=== PATIENT | male | born 1945 | race Caucasian/White ===

== ENCOUNTER → 2016-10-06 | Outpatient (CLI) | payer MEDICARE, OTHER ==
--- OUTSIDE RECORDS SUMMARY | 2016-10-06 12:20 | XMS REPORT | Continuity of Care Document ---
Author Author [facility] Organization [facility] Address Unknown Phone Unavailable Care Team Providers Care Dry Yard Worker Name Role Phone PCP Unavailable Source Comments Some departments are not documenting in the electronic medical record. If you do not see the information that you expected, contact Release of Information in the Health Information Management department at [phone] for further assistance in locating additional records.[facility] Active Allergies and Adverse Reactions No Known Allergies Current Medications Prescription Sig. Disp. Refills Start End Date Status Date ALLOPURINOL PO Take by mouth. Active aspirin EC 81 mg tablet Take 81 mg by mouth Active daily. MULTIVITAMINS WITH Take by mouth. Active FLUORIDE (MULTI-VITAMIN PO) Active Problems Problem Noted Date Prostate cancer (HCC) 06/26/2014 Overview: Pre-PNBx PSA was 3.9 at the time, 36 gram prostate 03/06/2004 PNBx - [place] 3+3=6 in 4 left cores Negative Bone and CT scan 05/21/2004 ([facility]) - RRP, BPNLD, L nerve sparing Pathology: G 3+4=7, PNI, positive R-sided margin Negative PSA post-op until June 2012, rise to 2.0 in 03/201405/11/14 Bone scan: negative 05/11/14 CT Abd/Pel: enlarged pelvic nodes with the largest measuring 4cm Erectile dysfunction 06/26/2014 Overview: S/p prostatectomy Social History Tobacco Use Types Packs/Day Years Used Date Former Smoker Smokeless Tobacco: Never Used Alcohol Use Drinks/Week oz/Week Comments No Last Filed Vital Signs Vital Sign Reading Time Taken Blood Pressure 130/70 06/26/2014 9:37 AM COMMUNITY MANAGER Pulse 78 06/26/2014 9:37 AM COMMUNITY MANAGER Temperature - - Respiratory Rate - - Height 1.753 m (5' 9") 06/26/2014 9:37 AM COMMUNITY MANAGER Weight 122.653 kg (270 lb 6.4 06/26/2014 9:37 AM COMMUNITY MANAGER oz) Body Mass Index 39.91 06/26/2014 9:37 AM COMMUNITY MANAGER Oxygen Saturation - - Plan of Care Health Maintenance Due Date Last Done Comments Physical (Comprehensive) 1952 Exam Pertussis Vaccine 1956 Tetanus Vaccine 1962 Colorectal Cancer 11/17/1995 Screening Shingles Vaccine 2005 Prevnar/Pneumovax (#1) 2010 Influenza Vaccine 04/23/2016 Results from Last 3 Months Not on file
--- NOTE | 2016-10-06 16:58 | Diagnostic Imaging Report ---
EXAMINATION: PET-CT TECHNIQUE: Serum glucose level at the time of the study is: 114 mg/dL. 14.1 mCi of FDG was administered intravenously followed by obtaining PET images with corresponding noncontrast CT scan images. The CT scan was performed for anatomic correlation and attenuation correction and was not performed according to the diagnostic protocol of the areas covered. The scan was performed from the head to mid thighs. INDICATION: Non-Hodgkin's lymphoma. FINDINGS: There are innumerable enlarged and nonenlarged but prominent lymph nodes in the cervical chain bilaterally that demonstrate avid FDG uptake. This involves intraparotid lymph nodes, level II, III, IV, and V lymph nodes. The largest lymph node on the left side level II is 3.7 x 2.4 cm. There is also hypermetabolism involving the left peritonsillar area with a 1.5 cm nodule in the left paravertebral space which may relate to involved lymph nodes as well. SUV values range from 4 to 10 in the involved lymph nodes. A large left supraclavicular lesion measuring 3 cm is also noted in addition to multiple small supraclavicular lymph nodes on both sides. There are hypermetabolic mildly enlarged lymph nodes in the left axilla and minimally prominent hypermetabolic likely involved right axillary lymph nodes, level II and level III, seen. There is a large left pleural effusion. A large hypermetabolic anterior mediastinal mass is seen measuring 10.9 x 6.4 cm in maximum axial dimension and is associated with a maximum SUV of 13. Other hypermetabolic mediastinal lymph nodes in the infracarinal region and subaortic, right paratracheal nodes are noted in addition to bilateral hilar hypermetabolic nodes. There is also a hypermetabolic mass in a pleural-based location in the medial inferior aspect of the left hemithorax measuring 6 x 1.5 cm also demonstrating avid FDG uptake. There is a left pericardial fat pad lymph node measuring 2 cm just above the diaphragm with associated mild hypermetabolism. The spleen is associated with diffuse prominent hypermetabolism with an SUV of 7 in average and is moderate to severely enlarged with maximum axial dimensions of 19 x 10.4 cm obtained. There are mildly enlarged hypermetabolic para-aortic lymph nodes also seen on both sides as well as widely enlarged will hepatis and other upper abdominal lymph nodes along the celiac axis. There are also mildly enlarged left external iliac and left common iliac and left inguinal hypermetabolic lymph nodes seen. IMPRESSION: 1. Extensive hypermetabolic lymphadenopathy in the neck, mediastinum, abhilash, axillae, retroperitoneal, left iliac, and left inguinal lymph node stations involved. 2. There is [id number] splenomegaly with hypermetabolism suggestive of lymphoma involvement, and there is a pleural-based mass in the medial inferior aspect of the left chest and a nodule/mildly enlarged lymph node in the left pericardial fat pad, all compatible with lymphoma involvement. Dictated by: Dictated on workstation # [id number]
== END ==
LOC: RAD 12:17
PROVIDERS: ATTEND Internal Medicine Hematology & Oncology
DX: C85.90 Non-Hodgkin lymphoma, unspecified, unspecified site (principal); R22.1 Localized swelling, mass and lump, neck

== ENCOUNTER → 2016-10-08 | Outpatient (CLI) | payer MEDICARE, OTHER ==
--- OUTSIDE RECORDS SUMMARY | 2016-10-08 11:44 | XMS REPORT | Continuity of Care Document ---
Author Author [facility] Organization [facility] Address Unknown Phone Unavailable Care Team Providers Care Roll Weigher Name Role Phone PCP Unavailable Source Comments Some departments are not documenting in the electronic medical record. If you do not see the information that you expected, contact Release of Information in the Health Information Management department at [phone] for further assistance in locating additional records.[facility] Active Allergies and Adverse Reactions No [...] time, 36 gram prostate 03/06/2004 PNBx - [place] 3+3=6 in 4 left cores Negative Bone and CT scan 05/21/2004 ([facility]) - RRP, BPNLD, L nerve sparing Pathology: [...] Taken Blood Pressure 130/70 06/26/2014 9:37 AM ADJUTANT GENERAL Pulse 78 06/26/2014 9:37 AM ADJUTANT GENERAL Temperature - - Respiratory Rate - - Height 1.753 m (5' 9") 06/26/2014 9:37 AM ADJUTANT GENERAL Weight 122.653 kg (270 lb 6.4 06/26/2014 9:37 AM ADJUTANT GENERAL oz) Body Mass Index 39.91 06/26/2014 9:37 AM ADJUTANT GENERAL Oxygen Saturation - - Plan of Care Health Maintenance Due Date Last Done Comments Physical (Comprehensive) 1952 Exam Pertussis Vaccine 1956 Tetanus Vaccine 1962 Colorectal Cancer 11/17/1995 Screening Shingles Vaccine 2005 Prevnar/Pneumovax (#1) 2010 Influenza Vaccine 04/23/2016 Results from Last 3 Months Not on file
--- NOTE | 2016-10-09 10:59 | ECHOCARDIOGRAPHY REPORT ---
PROCEDURE PHYSICIAN: ESSENCE REAVES DATE OF PROCEDURE: 10/08/2016 TWO DIMENSIONAL ECHOCARDIOGRAM REPORT PRIMARY PHYSICIAN: Dr. Smith OTHER PHYSICIAN: REFERRING PHYSICIAN: ORDERING PHYSICIAN: Dr. Voss INDICATION FOR THE PROCEDURE: Lymphoma, preoperative cardiovascular examination MEASUREMENTS DERIVED VALUES LV DIAMETER (LAX) NORMALS NORMALS Diastolic 5.2 (3.6-5.2) Eject. Fract. (60%+/-6%) Systolic (2.3-3.9) Diastolic Vol. % Shortening (0.22-0.42) Systolic Vol. Aortic Root 2.9 IVS THICKNESS Diastolic 1.5 (0.6-1.1) LVPW THICKNESS Diastolic 1.4 (0.6-1.1) LA DIAMETER Systolic 3.6 (2.1-3.7) DESCRIPTION: The aortic, mitral and tricuspid valve leaflets show good leaflet excursion. There is mild aortic valve sclerosis. Aortic valve leaflet structure is not very well visualized. Doppler imaging shows trivial tricuspid regurgitation. Pulmonary artery systolic pressure is 25 to 30 mmHg. There is no Doppler evidence of significant valvular stenosis. Mitral inflow is consistent with grade 1 diastolic dysfunction of the left ventricle. There is no evidence of significant intracardiac shunt on this transthoracic echocardiographic study. Inferior vena cava is of normal size and exhibits normal inspiratory collapse. CONCLUSION: 1. Normal global left ventricular systolic function with an ejection fraction of approximately 60 to 65%. 2. Mild to moderate concentric left ventricular hypertrophy. 3. Mild diastolic dysfunction of the left ventricle. 4. Trivial tricuspid regurgitation. 5. Pulmonary artery systolic pressure is estimated to be 25 to 30 mmHg. 6. No evidence of significant valvular stenosis. Job ID: [id number] Dictated Date: 10/08/2016 20:11:32 Hardware Assembler Date: 10/09/2016 10:51:57 / [email or web address]
== END ==
LOC: CARD 11:41
PROVIDERS: ATTEND Internal Medicine Hematology & Oncology
DX: Z01.810 Encounter for preprocedural cardiovascular examination (principal); C85.90 Non-Hodgkin lymphoma, unspecified, unspecified site
CPT/HCPCS: 93306

== ENCOUNTER → 2016-12-28 | Outpatient (CLI) | payer MEDICARE, OTHER ==
[~2016-12-28] MED LIST: BARIUM SUSPENSION 2.1% (REDI-CAT 2) 450 ML PO ONE; CATHETER FLUSH 10 ML SYR IV PRN; IOHEXOL 350 MG/ML 150 ML (OMNIPAQUE 350) VIAL IV ONE; NS 100 ML (IVPB) BAG IV ONE
--- NOTE | 2016-12-28 16:49 | Diagnostic Imaging Report ---
CT NECK/CHEST/ABDOMEN/PELVIS W TECHNIQUE: Post contrast axial CT imaging of the chest, abdomen, and pelvis was performed. This was followed by post contrast axial imaging of the neck. Coronal reformats were created of both the body and the neck and submitted for interpretation. INDICATION: Non-Hodgkin's lymphoma. COMPARISON: CT chest, abdomen, and pelvis from 10/05/2016. CT NECK: FINDINGS: No enlarged cervical lymph nodes by size criteria. There are a few conspicuous bilateral cervical lymph nodes which are all subcentimeter in size. The largest is a left-sided level IIA lymph node measuring up to 1.0 cm in long axis. Airway is widely patent. No evidence of mucosal-based mass lesion in the pharynx or larynx. Stable partially exophytic and partially calcified hypodense nodule in the left thyroid measuring 1.0 x 1.0 cm. Salivary glands are symmetric. Bilateral carotid and vertebral arteries are patent. No focal suspicious osseous lesion in the cervical spine. Mild multilevel cervical spondylosis. IMPRESSION: 1. No cervical lymphadenopathy to suggest lymphoma within the neck. There are multiple predominantly subcentimeter bilateral cervical lymph nodes which are likely reactive in nature. 2. Stable partially calcified hypodense nodule in the inferior thyroid measuring up to 1 cm. This could be further evaluated with thyroid ultrasound, if not previously performed. CT CHEST: FINDINGS: No axillary lymphadenopathy. The mediastinal lymphadenopathy has undergone marked treatment response since outside exam of 09/25/2016. The previously noted large conglomeration of anterior mediastinal lymph nodes are now band like in configuration measuring 6.5 x 1.4 cm (previously measuring 12.1 x 6.9 cm). Additionally, the paratracheal lymph nodes have decreased in size with the lower right paratracheal lymph node now measuring 1.5 x 0.7 cm (previously 3.4 x 2.8 cm). An additional conglomeration of upper right paratracheal lymph nodes are no longer measurable as they are all less than 0.5 cm in size. Marked decrease in size of right hilar lymphadenopathy, with minimal residual lymphoid tissue measuring 1.0 x 0.7 cm (previously 4.0 x 4.2 cm). No left hilar lymphadenopathy. No juxtaphrenic lymphadenopathy. Previously noted left anterior juxtaphrenic lymph node now measures 1.1 x 0.4 cm (previously 2.3 x 1.3 cm). The heart is normal in size. No pericardial effusion. Normal-caliber thoracic aorta. Decrease in size of left pleural effusion, which is now small in volume. No pneumothorax or pleural nodularity. Unchanged 5 mm nodule in the posterior right upper lobe. Clustered micronodules within the periphery of the posterior right upper lobe are also similar. No new pulmonary nodule or mass. Improved aeration in the left lower lobe due to decrease in size of the left-sided pleural effusion. No suspicious osseous lesions in the thorax. IMPRESSION: 1. Marked treatment response in the chest with near-complete resolution of mediastinal and hilar lymphadenopathy. 2. Decrease in size but persistence of small left pleural effusion. 3. A few right upper lobe pulmonary nodules are unchanged and could be infectious or inflammatory in etiology. However, attention on followup surveillance imaging is advised as secondary pulmonary involvement could have this appearance. CT ABDOMEN AND PELVIS: FINDINGS: No free intraperitoneal air or fluid. Liver is normal in size. The spleen is no longer enlarged with maximal AP dimension of 11.6 cm (previously 19.6 cm). Gallbladder and adrenals are normal. Stable fatty infiltration of the pancreas without focal mass lesion. No bowel obstruction. Stable exophytic cyst arising from the lower pole of the left kidney measuring up to 2.0 cm. Stable fusiform ectasia of the infrarenal abdominal aorta measuring up to 2.4 cm. Sigmoid colon diverticulosis without diverticulitis. No inflammatory changes in the terminal ileum to suggest typhlitis. Prostatectomy. Marked decrease in size of previously noted enlarged retroperitoneal lymph nodes throughout the abdomen. Additional celiac axis lymph nodes have decreased in size. The majority of the lymph nodes are no longer measurable. Previously noted right retrocaval conglomeration of lymph nodes now measures 1.5 x 0.5 cm (previously 3.8 x 2.9 cm). The residual lymph nodes are all subcentimeter in size and not pathologically enlarged. IMPRESSION: 1. Marked treatment response in the abdomen with resolution of retroperitoneal and mesenteric root lymphadenopathy. Additionally, there has been resolution of splenomegaly. Dictated by: Dictated on workstation # [id number]
== END ==
LOC: RAD 12:53
PROVIDERS: ATTEND Nurse Practitioner Adult Health
DX: C82.18 Follicular lymphoma grade II, lymph nodes of multiple sites (principal)
CPT/HCPCS: 70491; 71260; 74176

== ENCOUNTER → 2017-01-04 | Outpatient (RCR) | payer MEDICARE, OTHER ==
--- OUTSIDE RECORDS SUMMARY | 2016-10-06 14:37 | XMS REPORT | Continuity of Care Document ---
Author Author [facility] Organization [facility] Address Unknown Phone Unavailable Care Team Providers Care Telescope Maintenance Name Role Phone PCP Unavailable Source Comments Some departments are not documenting in the electronic medical record. If you do not see the information that you expected, contact Release of Information in the Health Information Management department at [phone] for further assistance in locating additional records.[facility] Active Allergies and Adverse Reactions No Known [...] time, 36 gram prostate 03/06/2004 PNBx - [place] 3+3=6 in 4 left cores Negative Bone and CT scan 05/21/2004 ([facility]) - RRP, BPNLD, L nerve sparing Pathology: [...] Taken Blood Pressure 130/70 06/26/2014 9:37 AM SPEECH LANGUAGE PATHOLOGIST ASSISTANT Pulse 78 06/26/2014 9:37 AM SPEECH LANGUAGE PATHOLOGIST ASSISTANT Temperature - - Respiratory Rate - - Height 1.753 m (5' 9") 06/26/2014 9:37 AM SPEECH LANGUAGE PATHOLOGIST ASSISTANT Weight 122.653 kg (270 lb 6.4 06/26/2014 9:37 AM SPEECH LANGUAGE PATHOLOGIST ASSISTANT oz) Body Mass Index 39.91 06/26/2014 9:37 AM SPEECH LANGUAGE PATHOLOGIST ASSISTANT Oxygen Saturation - - Plan of Care Health Maintenance Due Date Last Done Comments Physical (Comprehensive) 1952 Exam Pertussis Vaccine 1956 Tetanus Vaccine 1962 Colorectal Cancer 11/17/1995 Screening Shingles Vaccine 2005 Prevnar/Pneumovax (#1) 2010 Influenza Vaccine 04/23/2016 Results from Last 3 Months Not on file
[2016-10-06 15:59] LABS: BASOPHILS % (AUTO) 1 % (0-10); EOSINOPHILS # (AUTO) 0.5 10^3/uL (0.0-0.3); EOSINOPHILS % (AUTO) 7 % (0-10); LYMPHOCYTES # (AUTO) 1.6 X 10^3 (1.0-4.0); LYMPHOCYTES % (AUTO) 25 % (12-44); MEAN CORPUSCULAR HEMOGLOBIN 27 PG (25-34); MEAN CORPUSCULAR HGB CONC 33 G/DL (32-36); MEAN CORPUSCULAR VOLUME 84 FL (80-99); MEAN PLATELET VOLUME 8.9 FL (7.4-10.4); MONOCYTES # (AUTO) 0.8 X 10^3 (0.0-1.0); MONOCYTES % (AUTO) 13 % (0-12); NEUTROPHILS # (AUTO) 3.5 X 10^3 (1.8-7.8); NEUTROPHILS % (AUTO) 55 % (42-75); PLATELET COUNT 255 10^3/uL (130-400); RED BLOOD COUNT 4.59 10^6/uL (4.35-5.85); WHITE BLOOD COUNT 6.4 10^3/uL (4.3-11.0)
[2016-10-06 16:33] LABS: ALANINE AMINOTRANSFERASE 20 U/L (0-55); ALBUMIN 3.9 G/DL (3.2-4.5); ANION GAP 13 MMOL/L (5-14); ASPARTATE AMINO TRANSFERASE 42 U/L (5-34); BILIRUBIN,TOTAL 0.4 MG/DL (0.1-1.0); BLOOD UREA NITROGEN 21 MG/DL (7-18); BUN/CREATININE RATIO 19; CALCIUM 9.3 MG/DL (8.5-10.1); CARBON DIOXIDE 19 MMOL/L (21-32); CHLORIDE 106 MMOL/L (98-107); CREATININE SERUM 1.08 MG/DL (0.60-1.30); GFR ESTIMATED > 60; GLUCOSE 136 MG/DL (70-105); LACTATE DEHYDROGENASE 229 U/L (125-220); POTASSIUM 4.1 MMOL/L (3.6-5.0); SODIUM 138 MMOL/L (135-145); TOTAL PROTEIN 7.5 G/DL (6.4-8.2); URIC ACID 10.2 MG/DL (2.6-7.2)
[2016-10-13 09:42] LABS: ALANINE AMINOTRANSFERASE 17 U/L (0-55); ALBUMIN 3.6 G/DL (3.2-4.5); ANION GAP 11 MMOL/L (5-14); ASPARTATE AMINO TRANSFERASE 35 U/L (5-34); BILIRUBIN,TOTAL 0.3 MG/DL (0.1-1.0); BLOOD UREA NITROGEN 14 MG/DL (7-18); BUN/CREATININE RATIO 13; CALCIUM 9.1 MG/DL (8.5-10.1); CARBON DIOXIDE 23 MMOL/L (21-32); CHLORIDE 106 MMOL/L (98-107); CREATININE SERUM 1.09 MG/DL (0.60-1.30); GFR ESTIMATED > 60; GLUCOSE 154 MG/DL (70-105); MAGNESIUM 1.9 MG/DL (1.8-2.4); SODIUM 140 MMOL/L (135-145); TOTAL PROTEIN 7.2 G/DL (6.4-8.2); URIC ACID 8.3 MG/DL (2.6-7.2)
[2016-10-14 13:29] LABS: ANION GAP 10 MMOL/L (5-14); BLOOD UREA NITROGEN 16 MG/DL (7-18); BUN/CREATININE RATIO 17; CALCIUM 9.4 MG/DL (8.5-10.1); CARBON DIOXIDE 23 MMOL/L (21-32); CHLORIDE 107 MMOL/L (98-107); CREATININE SERUM 0.92 MG/DL (0.60-1.30); GFR ESTIMATED > 60; GLUCOSE 87 MG/DL (70-105); POTASSIUM 4.2 MMOL/L (3.6-5.0); SODIUM 140 MMOL/L (135-145); URIC ACID 7.6 MG/DL (2.6-7.2)
[2016-11-09 13:14] LABS: BASOPHILS % (AUTO) 1 % (0-10); EOSINOPHILS # (AUTO) 0.4 10^3/uL (0.0-0.3); EOSINOPHILS % (AUTO) 7 % (0-10); LYMPHOCYTES # (AUTO) 1.4 X 10^3 (1.0-4.0); LYMPHOCYTES % (AUTO) 21 % (12-44); MEAN CORPUSCULAR HEMOGLOBIN 28 PG (25-34); MEAN CORPUSCULAR HGB CONC 33 G/DL (32-36); MEAN CORPUSCULAR VOLUME 83 FL (80-99); MEAN PLATELET VOLUME 8.8 FL (7.4-10.4); MONOCYTES % (AUTO) 15 % (0-12); NEUTROPHILS # (AUTO) 3.8 X 10^3 (1.8-7.8); NEUTROPHILS % (AUTO) 57 % (42-75); PLATELET COUNT 281 10^3/uL (130-400); RED BLOOD COUNT 4.56 10^6/uL (4.35-5.85); RED CELL DISTRIBUTION WIDTH 16.8 % (10.0-14.5); WHITE BLOOD COUNT 6.7 10^3/uL (4.3-11.0)
[2016-11-09 13:44] LABS: ALANINE AMINOTRANSFERASE 25 U/L (0-55); ANION GAP 10 MMOL/L (5-14); ASPARTATE AMINO TRANSFERASE 27 U/L (5-34); BILIRUBIN,TOTAL 0.4 MG/DL (0.1-1.0); BLOOD UREA NITROGEN 14 MG/DL (7-18); BUN/CREATININE RATIO 15; CALCIUM 9.6 MG/DL (8.5-10.1); CARBON DIOXIDE 22 MMOL/L (21-32); CHLORIDE 109 MMOL/L (98-107); CREATININE SERUM 0.91 MG/DL (0.60-1.30); GFR ESTIMATED > 60; GLUCOSE 82 MG/DL (70-105); LACTATE DEHYDROGENASE 165 U/L (125-220); POTASSIUM 4.1 MMOL/L (3.6-5.0); SODIUM 141 MMOL/L (135-145); TOTAL PROTEIN 7.5 G/DL (6.4-8.2); URIC ACID 5.3 MG/DL (2.6-7.2)
[2016-12-07 09:35] LABS: BASOPHILS % (AUTO) 1 % (0-10); EOSINOPHILS # (AUTO) 0.2 10^3/uL (0.0-0.3); EOSINOPHILS % (AUTO) 4 % (0-10); LYMPHOCYTES # (AUTO) 1.1 X 10^3 (1.0-4.0); LYMPHOCYTES % (AUTO) 22 % (12-44); MEAN CORPUSCULAR HEMOGLOBIN 28 PG (25-34); MEAN CORPUSCULAR HGB CONC 34 G/DL (32-36); MEAN CORPUSCULAR VOLUME 83 FL (80-99); MEAN PLATELET VOLUME 8.8 FL (7.4-10.4); MONOCYTES # (AUTO) 0.6 X 10^3 (0.0-1.0); MONOCYTES % (AUTO) 11 % (0-12); NEUTROPHILS # (AUTO) 3.1 X 10^3 (1.8-7.8); NEUTROPHILS % (AUTO) 62 % (42-75); PLATELET COUNT 288 10^3/uL (130-400); RED BLOOD COUNT 4.64 10^6/uL (4.35-5.85); RED CELL DISTRIBUTION WIDTH 16.8 % (10.0-14.5)
[2016-12-07 10:06] LABS: ALANINE AMINOTRANSFERASE 21 U/L (0-55); ALBUMIN 4.1 G/DL (3.2-4.5); ANION GAP 10 MMOL/L (5-14); ASPARTATE AMINO TRANSFERASE 24 U/L (5-34); BILIRUBIN,TOTAL 0.4 MG/DL (0.1-1.0); BLOOD UREA NITROGEN 18 MG/DL (7-18); BUN/CREATININE RATIO 17; CALCIUM 9.3 MG/DL (8.5-10.1); CARBON DIOXIDE 21 MMOL/L (21-32); CHLORIDE 111 MMOL/L (98-107); CREATININE SERUM 1.04 MG/DL (0.60-1.30); GFR ESTIMATED > 60; GLUCOSE 147 MG/DL (70-105); LACTATE DEHYDROGENASE 263 U/L (125-220); POTASSIUM 4.1 MMOL/L (3.6-5.0); SODIUM 142 MMOL/L (135-145); TOTAL PROTEIN 7.2 G/DL (6.4-8.2); URIC ACID 7.9 MG/DL (2.6-7.2)
[~2017-01-04] VITALS: Ht 171.4 cm; Wt 108.9 kg
[~2017-01-04] MED LIST changes: +ACETAMINOPHEN 325 MG TAB (TYLENOL) CANCER CTR PO PRN; -BARIUM SUSPENSION 2.1% (REDI-CAT 2) 450 ML PO ONE; +BENDAMUSTINE HCL 180 MG in NS (IVPB) CANCER CENTER 50 ML IV SCH; -CATHETER FLUSH 10 ML SYR IV PRN; -IOHEXOL 350 MG/ML 150 ML (OMNIPAQUE 350) VIAL IV ONE; +MEPERIDINE (DEMEROL) INJ 50 MG/ML CANCER CTR IV PRN; -NS 100 ML (IVPB) BAG IV ONE; +NS IV 1000 ML (CANCER CTR) IV SCH; +NS IV 500 ML (CANCER CENTER) 500 ML ONE; +ONDANSETRON 16 MG, DEXAMETHASONE 10 MG/NS 50 ML IVPB IV SCH; +diphenhydrAMINE 25 MG TAB (BENADRYL) CANCER CENTER PO ONE; +diphenhydrAMINE 50 MG/ML INJ (CANCER CENTER) IV PRN; +riTUXimab 500 MG, riTUXimab FOR IV INJ CONC 300 MG in NS (IVPB) CANCER CENTER 186 ML IV SCH
[2017-01-04 11:08] LABS: BASOPHILS % (AUTO) 1 % (0-10); EOSINOPHILS # (AUTO) 0.3 10^3/uL (0.0-0.3); EOSINOPHILS % (AUTO) 5 % (0-10); LYMPHOCYTES # (AUTO) 0.7 X 10^3 (1.0-4.0); LYMPHOCYTES % (AUTO) 13 % (12-44); MEAN CORPUSCULAR HEMOGLOBIN 29 PG (25-34); MEAN CORPUSCULAR HGB CONC 35 G/DL (32-36); MEAN CORPUSCULAR VOLUME 83 FL (80-99); MEAN PLATELET VOLUME 8.8 FL (7.4-10.4); MONOCYTES # (AUTO) 0.8 X 10^3 (0.0-1.0); MONOCYTES % (AUTO) 15 % (0-12); NEUTROPHILS # (AUTO) 3.5 X 10^3 (1.8-7.8); NEUTROPHILS % (AUTO) 66 % (42-75); PLATELET COUNT 279 10^3/uL (130-400); RED BLOOD COUNT 4.58 10^6/uL (4.35-5.85); RED CELL DISTRIBUTION WIDTH 16.2 % (10.0-14.5); WHITE BLOOD COUNT 5.3 10^3/uL (4.3-11.0)
[2017-01-04 11:31] LABS: ALANINE AMINOTRANSFERASE 22 U/L (0-55); ALBUMIN 4.2 G/DL (3.2-4.5); ANION GAP 7 MMOL/L (5-14); ASPARTATE AMINO TRANSFERASE 26 U/L (5-34); BILIRUBIN,TOTAL 0.3 MG/DL (0.1-1.0); BLOOD UREA NITROGEN 18 MG/DL (7-18); BUN/CREATININE RATIO 17; CALCIUM 9.6 MG/DL (8.5-10.1); CARBON DIOXIDE 26 MMOL/L (21-32); CHLORIDE 109 MMOL/L (98-107); CREATININE SERUM 1.09 MG/DL (0.60-1.30); GFR ESTIMATED > 60; GLUCOSE 101 MG/DL (70-105); LACTATE DEHYDROGENASE 253 U/L (125-220); MAGNESIUM 2.1 MG/DL (1.8-2.4); POTASSIUM 4.1 MMOL/L (3.6-5.0); SODIUM 142 MMOL/L (135-145); TOTAL PROTEIN 7.3 G/DL (6.4-8.2); URIC ACID 8.5 MG/DL (2.6-7.2)
== END | disposition home or self-care (01) ==
LOC: ONC 10-06 14:32
PROVIDERS: ATTEND Internal Medicine Hematology & Oncology
DX: Z51.11 Encounter for antineoplastic chemotherapy (principal); C82.18 Follicular lymphoma grade II, lymph nodes of multiple sites; M10.9 Gout, unspecified; Z85.46 Personal history of malignant neoplasm of prostate; Z87.891 Personal history of nicotine dependence
CPT/HCPCS: 36415; 36591; 80048; 80053; 80074; 82232; 83615; 83735; 84550; 85025; 96375; 96409; 96411; 96413; 96415; 96417; 99213; 99214

== ENCOUNTER → 2017-03-31 | Outpatient (CLI) | payer MEDICARE, OTHER ==
[~2017-03-31] MED LIST changes: -ACETAMINOPHEN 325 MG TAB (TYLENOL) CANCER CTR PO PRN; -BENDAMUSTINE HCL 180 MG in NS (IVPB) CANCER CENTER 50 ML IV SCH; +CATHETER FLUSH 10 ML SYR IV PRN; +IOHEXOL 350 MG/ML 150 ML (OMNIPAQUE 350) VIAL IV ONE; -MEPERIDINE (DEMEROL) INJ 50 MG/ML CANCER CTR IV PRN; -NS IV 1000 ML (CANCER CTR) IV SCH; -NS IV 500 ML (CANCER CENTER) 500 ML ONE; -ONDANSETRON 16 MG, DEXAMETHASONE 10 MG/NS 50 ML IVPB IV SCH; -diphenhydrAMINE 25 MG TAB (BENADRYL) CANCER CENTER PO ONE; -diphenhydrAMINE 50 MG/ML INJ (CANCER CENTER) IV PRN; -riTUXimab 500 MG, riTUXimab FOR IV INJ CONC 300 MG in NS (IVPB) CANCER CENTER 186 ML IV SCH
--- NOTE | 2017-03-31 15:55 | Diagnostic Imaging Report ---
EXAMINATION: CT of the neck, chest, abdomen, and pelvis with and without contrast. INDICATION: Non-Hodgkin's lymphoma. TECHNIQUE: Contiguous axial sections were taken through the abdomen and pelvis following administration of oral contrast. Subsequently additional images of the neck, chest, abdomen, and pelvis were obtained after intravenous contrast was administered. FINDINGS: The previous CT neck, chest, abdomen, and pelvis exam of 12/28/2016 noted a left-sided level IIA lymph node measuring approximately 1.1 cm in maximum dimension. That node has decreased in size and now measures 0.8 cm. No other adenopathy is noted, and there is no sign of a mass. The parotid and submandibular glands appear symmetrical and stable when compared to the prior study. The partially calcified 1.1 x 1.0 cm nodule in the inferior pole of the left lobe of the thyroid seen previously is again evident and does not appear to have changed significantly in size. The images through the thorax noted a band-like area of increased density in the anterior mediastinum measuring 1.7 x 6.4 cm. That finding is again evident on this study and now measures 1.6 x 6.5 cm. The subcentimeter nodes in the mediastinum seen on the prior study are again evident and do not appear to have changed adversely. As on the previous study, there is a left pleural effusion. The effusion has increased somewhat in size since the prior exam and now measures approximately 3.4 cm in maximum depth as opposed to 2.8 cm on the prior study. There is no sign of a pleural effusion on the left. The lungs are generally clear. The cluster of micronodules in the periphery of the right upper lobe seen on the prior study are not well visualized on this exam. The aorta is stable in size. There is no defect within the pulmonary arteries to indicate a pulmonary embolus. The heart size remains within normal limits. Coronary artery calcifications are again noted. The images through the abdomen and pelvis again show a few small retroperitoneal nodes. The 0.5 x 1.5 cm node in the retrocaval region seen on the prior study now measures 0.6 x 1.3 cm. There are a few other subcentimeter nodes present in the retroperitoneum. There is no pelvic or iliac chain adenopathy noted, and there is no sign of adenopathy in the inguinal regions. The spleen is similar in size to the prior exam measuring approximately 12 cm in maximum AP diameter. The liver does not appear to be enlarged. The 1.4 cm area of diminished density in the medial aspect of the right lobe of the liver near the falciform ligament seen previously is again evident and does not appear to have changed significantly. This finding is not as conspicuous on the delayed series, and I suspect that this probably represents a small hemangioma. The pancreas, the gallbladder, the kidneys, the aorta, and the inferior vena cava are unremarkable for an acute abnormality. The adrenal glands are generally unremarkable. As seen on the prior study, there are numerous diverticula involving the sigmoid and descending colon. There is no sign of acute diverticulitis. There is no evidence for appendicitis either. The urinary bladder is grossly unremarkable. The prostate gland is surgically absent. The bone windows show no evidence for a fracture or for a destructive lesion. IMPRESSION: 1. The appearance of the neck has improved as the small level II node on the left seen previously has diminished in size. No new adenopathy in the neck has developed. The low-density nodule in the left lobe of the thyroid also seems stable. 2. There is no new adenopathy involving the thorax, abdomen, or pelvis either. 3. The pleural effusion on the left seen previously has increased in size slightly. There is no acute cardiopulmonary abnormality identified. There is no acute abnormality of the abdomen or pelvis noted either. Dictated by: Dictated on workstation # [id number]
== END ==
LOC: RAD 10:39
PROVIDERS: ATTEND Internal Medicine Hematology & Oncology
DX: E04.1 Nontoxic single thyroid nodule (principal); J90 Pleural effusion, not elsewhere classified; C82.18 Follicular lymphoma grade II, lymph nodes of multiple sites
CPT/HCPCS: 70491; 71260; 74178

== ENCOUNTER → 2017-04-05 | Outpatient (RCR) | payer MEDICARE, OTHER ==
[2017-02-08 13:14] LABS: BASOPHILS % (AUTO) 0 % (0-10); EOSINOPHILS # (AUTO) 0.2 10^3/uL (0.0-0.3); EOSINOPHILS % (AUTO) 3 % (0-10); LYMPHOCYTES % (AUTO) 19 % (12-44); MEAN CORPUSCULAR HEMOGLOBIN 29 PG (25-34); MEAN CORPUSCULAR HGB CONC 35 G/DL (32-36); MEAN CORPUSCULAR VOLUME 85 FL (80-99); MEAN PLATELET VOLUME 8.9 FL (7.4-10.4); MONOCYTES # (AUTO) 0.7 X 10^3 (0.0-1.0); MONOCYTES % (AUTO) 14 % (0-12); NEUTROPHILS # (AUTO) 3.3 X 10^3 (1.8-7.8); NEUTROPHILS % (AUTO) 63 % (42-75); PLATELET COUNT 277 10^3/uL (130-400); RED BLOOD COUNT 4.25 10^6/uL (4.35-5.85); RED CELL DISTRIBUTION WIDTH 14.7 % (10.0-14.5); WHITE BLOOD COUNT 5.1 10^3/uL (4.3-11.0)
[2017-02-08 13:32] LABS: ALANINE AMINOTRANSFERASE 21 U/L (0-55); ALBUMIN 4.2 GM/DL (3.2-4.5); ANION GAP 11 MMOL/L (5-14); ASPARTATE AMINO TRANSFERASE 25 U/L (5-34); BILIRUBIN,TOTAL 0.6 MG/DL (0.1-1.0); BLOOD UREA NITROGEN 15 MG/DL (7-18); BUN/CREATININE RATIO 14 (0-20); CALCIUM 9.5 MG/DL (8.5-10.1); CARBON DIOXIDE 23 MMOL/L (21-32); CHLORIDE 108 MMOL/L (98-107); CREATININE SERUM 1.07 MG/DL (0.60-1.30); GFR ESTIMATED > 60; GLUCOSE 119 MG/DL (70-105); HEMOLYSIS 14 (-100-29); ICTERUS 0.5 (-100-1.9); LACTATE DEHYDROGENASE 293 U/L (125-220); LIPEMIA 31 (-100-49); POTASSIUM 3.9 MMOL/L (3.6-5.0); SODIUM 142 MMOL/L (135-145); TOTAL PROTEIN 7.4 GM/DL (6.4-8.2); URIC ACID 7.8 MG/DL (2.6-7.2)
[2017-03-08 08:58] LABS: BASOPHILS # (AUTO) 0.1 10^3/uL (0.0-0.1); BASOPHILS % (AUTO) 1 % (0-10); EOSINOPHILS # (AUTO) 0.3 10^3/uL (0.0-0.3); EOSINOPHILS % (AUTO) 7 % (0-10); LYMPHOCYTES # (AUTO) 0.9 X 10^3 (1.0-4.0); LYMPHOCYTES % (AUTO) 20 % (12-44); MEAN CORPUSCULAR HEMOGLOBIN 30 PG (25-34); MEAN CORPUSCULAR HGB CONC 35 G/DL (32-36); MEAN CORPUSCULAR VOLUME 85 FL (80-99); MEAN PLATELET VOLUME 8.7 FL (7.4-10.4); MONOCYTES # (AUTO) 0.8 X 10^3 (0.0-1.0); MONOCYTES % (AUTO) 18 % (0-12); NEUTROPHILS # (AUTO) 2.3 X 10^3 (1.8-7.8); NEUTROPHILS % (AUTO) 54 % (42-75); PLATELET COUNT 269 10^3/uL (130-400); RED BLOOD COUNT 4.46 10^6/uL (4.35-5.85); WHITE BLOOD COUNT 4.3 10^3/uL (4.3-11.0)
[2017-03-08 09:24] LABS: ALANINE AMINOTRANSFERASE 24 U/L (0-55); ALBUMIN 4.1 GM/DL (3.2-4.5); ANION GAP 11 MMOL/L (5-14); ASPARTATE AMINO TRANSFERASE 24 U/L (5-34); BILIRUBIN,TOTAL 0.4 MG/DL (0.1-1.0); BLOOD UREA NITROGEN 15 MG/DL (7-18); BUN/CREATININE RATIO 14; CALCIUM 9.3 MG/DL (8.5-10.1); CARBON DIOXIDE 22 MMOL/L (21-32); CHLORIDE 107 MMOL/L (98-107); GFR ESTIMATED > 60; GLUCOSE 166 MG/DL (70-105); LACTATE DEHYDROGENASE 193 U/L (125-220); MAGNESIUM 1.8 MG/DL (1.8-2.4); POTASSIUM 3.8 MMOL/L (3.6-5.0); SODIUM 140 MMOL/L (135-145); TOTAL PROTEIN 7.4 GM/DL (6.4-8.2); URIC ACID 7.1 MG/DL (2.6-7.2)
[~2017-04-05] VITALS: Ht 171.4 cm; Wt 110.7 kg
[~2017-04-05] MED LIST changes: +ACETAMINOPHEN 325 MG TAB (TYLENOL) CANCER CTR PO PRN; +BENDAMUSTINE HCL 180 MG in NS (IVPB) CANCER CENTER 50 ML IV SCH; -CATHETER FLUSH 10 ML SYR IV PRN; -IOHEXOL 350 MG/ML 150 ML (OMNIPAQUE 350) VIAL IV ONE; +MEPERIDINE (DEMEROL) INJ 50 MG/ML CANCER CTR IV PRN; +NS IV 1000 ML (CANCER CTR) IV SCH; +NS IV 500 ML (CANCER CENTER) 500 ML ONE; +ONDANSETRON 16 MG, DEXAMETHASONE 10 MG/NS 50 ML IVPB IV SCH; +diphenhydrAMINE 25 MG TAB (BENADRYL) CANCER CENTER PO ONE; +diphenhydrAMINE 50 MG/ML INJ (CANCER CENTER) IV PRN; +riTUXimab 500 MG, riTUXimab FOR IV INJ CONC 300 MG in NS (IVPB) CANCER CENTER 186 ML IV SCH
[2017-04-05 10:03] LABS: BASOPHILS % (AUTO) 1 % (0-10); EOSINOPHILS # (AUTO) 0.3 10^3/uL (0.0-0.3); EOSINOPHILS % (AUTO) 5 % (0-10); LYMPHOCYTES # (AUTO) 0.9 X 10^3 (1.0-4.0); LYMPHOCYTES % (AUTO) 16 % (12-44); MEAN CORPUSCULAR HEMOGLOBIN 30 PG (25-34); MEAN CORPUSCULAR HGB CONC 35 G/DL (32-36); MEAN CORPUSCULAR VOLUME 86 FL (80-99); MEAN PLATELET VOLUME 8.7 FL (7.4-10.4); MONOCYTES # (AUTO) 0.9 X 10^3 (0.0-1.0); MONOCYTES % (AUTO) 15 % (0-12); NEUTROPHILS # (AUTO) 3.6 X 10^3 (1.8-7.8); NEUTROPHILS % (AUTO) 62 % (42-75); PLATELET COUNT 252 10^3/uL (130-400); RED BLOOD COUNT 4.36 10^6/uL (4.35-5.85); RED CELL DISTRIBUTION WIDTH 15.7 % (10.0-14.5); WHITE BLOOD COUNT 5.7 10^3/uL (4.3-11.0)
[2017-04-05 10:52] LABS: ALANINE AMINOTRANSFERASE 19 U/L (0-55); ALBUMIN 4.1 GM/DL (3.2-4.5); ANION GAP 12 MMOL/L (5-14); ASPARTATE AMINO TRANSFERASE 24 U/L (5-34); BILIRUBIN,TOTAL 0.5 MG/DL (0.1-1.0); BLOOD UREA NITROGEN 14 MG/DL (7-18); BUN/CREATININE RATIO 13; CALCIUM 9.6 MG/DL (8.5-10.1); CARBON DIOXIDE 22 MMOL/L (21-32); CHLORIDE 108 MMOL/L (98-107); CREATININE SERUM 1.05 MG/DL (0.60-1.30); GFR ESTIMATED > 60; GLUCOSE 128 MG/DL (70-105); LACTATE DEHYDROGENASE 204 U/L (125-220); POTASSIUM 3.9 MMOL/L (3.6-5.0); SODIUM 142 MMOL/L (135-145); TOTAL PROTEIN 7.3 GM/DL (6.4-8.2); URIC ACID 7.2 MG/DL (2.6-7.2)
== END | disposition home or self-care (01) ==
LOC: ONC 01-05 12:50
PROVIDERS: ATTEND Internal Medicine Hematology & Oncology
DX: Z51.11 Encounter for antineoplastic chemotherapy (principal); C82.18 Follicular lymphoma grade II, lymph nodes of multiple sites; M10.9 Gout, unspecified; Z85.46 Personal history of malignant neoplasm of prostate; Z87.891 Personal history of nicotine dependence
CPT/HCPCS: 36591; 80053; 83615; 83735; 84550; 85025; 96375; 96409; 96411; 96413

== ENCOUNTER 2017-05-10 08:28 | Outpatient (RCR) | payer MEDICARE, OTHER ==
[~2017-05-10] VITALS: Ht 171.4 cm; Wt 109.3 kg
[~2017-05-10 08:28] MED LIST changes: +NS IV 500 ML (CANCER CENTER) 500 ML IV SCH; -NS IV 500 ML (CANCER CENTER) 500 ML ONE; -diphenhydrAMINE 25 MG TAB (BENADRYL) CANCER CENTER PO ONE
[2017-05-10 08:59] LABS: BASOPHILS % (AUTO) 1 % (0-10); EOSINOPHILS # (AUTO) 0.2 10^3/uL (0.0-0.3); EOSINOPHILS % (AUTO) 4 % (0-10); LYMPHOCYTES % (AUTO) 20 % (12-44); MEAN CORPUSCULAR HEMOGLOBIN 30 PG (25-34); MEAN CORPUSCULAR HGB CONC 35 G/DL (32-36); MEAN CORPUSCULAR VOLUME 86 FL (80-99); MEAN PLATELET VOLUME 9.3 FL (7.4-10.4); MONOCYTES # (AUTO) 0.6 X 10^3 (0.0-1.0); MONOCYTES % (AUTO) 13 % (0-12); NEUTROPHILS # (AUTO) 3.1 X 10^3 (1.8-7.8); NEUTROPHILS % (AUTO) 63 % (42-75); PLATELET COUNT 264 10^3/uL (130-400); RED BLOOD COUNT 4.45 10^6/uL (4.35-5.85); RED CELL DISTRIBUTION WIDTH 14.9 % (10.0-14.5)
[2017-05-10 09:26] LABS: ALANINE AMINOTRANSFERASE 21 U/L (0-55); ALBUMIN 4.2 GM/DL (3.2-4.5); ANION GAP 9 MMOL/L (5-14); ASPARTATE AMINO TRANSFERASE 25 U/L (5-34); BILIRUBIN,TOTAL 0.5 MG/DL (0.1-1.0); BLOOD UREA NITROGEN 17 MG/DL (7-18); BUN/CREATININE RATIO 15; CALCIUM 9.6 MG/DL (8.5-10.1); CARBON DIOXIDE 23 MMOL/L (21-32); CHLORIDE 107 MMOL/L (98-107); CREATININE SERUM 1.13 MG/DL (0.60-1.30); GFR ESTIMATED > 60; GLUCOSE 116 MG/DL (70-105); LACTATE DEHYDROGENASE 236 U/L (125-220); POTASSIUM 3.8 MMOL/L (3.6-5.0); SODIUM 139 MMOL/L (135-145); TOTAL PROTEIN 7.4 GM/DL (6.4-8.2)
[2017-05-10] MEDS ORDERED: ACETAMINOPHEN 500 MG TAB (TYLENOL) CANCER CTR ONE (09:28)
[2017-05-10] MEDS ORDERED: diphenhydrAMINE 25 MG TAB (BENADRYL) CANCER CENTER PO ONE (09:28)
[2017-05-10] MEDS ORDERED: diphenhydrAMINE 25 MG TAB (BENADRYL) CANCER CENTER PO SCH (09:45)
== END 2017-05-22 | disposition home or self-care (01) ==
LOC: ONC 08:28
PROVIDERS: ATTEND Internal Medicine Hematology & Oncology
DX: Z51.11 Encounter for antineoplastic chemotherapy (principal); C82.18 Follicular lymphoma grade II, lymph nodes of multiple sites; M10.9 Gout, unspecified; Z85.46 Personal history of malignant neoplasm of prostate; Z87.891 Personal history of nicotine dependence
CPT/HCPCS: 36591; 80053; 83615; 85025; 96413

== ENCOUNTER 2017-05-31 15:15 | Inpatient (IN) | payer MEDICARE, OTHER ==
[~2017-05-31] VITALS: Ht 175.3 cm; Wt 106.4 kg
[2017-05-31 16:15] VITALS: BP 117/57
--- NOTE | 2017-05-31 16:34 | History & Physical-Hospitalist ---
HPI History of Present Illness: HPI/Chief Complaint Pt is a 71yoCM with a PMH of nonhodgkin's lymphoma, prostate cancer, and recurrent pleural effusions who was direct admitted from Dr. Smith's office for evaluation of pleural effusion. He has had recurrent effusions 2 times earlier this year necessitating pleurocentesis. He started to feel worse on Wednesday and was having SOB, chills, and fevers as well. He has started to have some left back pain as well. He called Dr. Voss this morning who receommended he see Dr Smith today. At Dr. Smith's office he was found to have a temperature of 99.8 and a CXR showed a left sided pleural effusion. He was then directed admitted her for evaluation and pulmonary consultation. Source: patient, family Exam Limitations: no limitations Date Seen 05/31/17 Time Seen by Provider: 16:05 Attending Physician Nelson Oswald MD PCP Sanket Smith DO Referring Physician Date of Admission May 31, 2017 at 4:05 pm Home Medications & Allergies Home Medications Reviewed patient Home Medication Reconciliation Form Allergies Allergies Coded Allergies No Known Drug Allergies (Tpmntytuze35/9/17) Past [id number]-[id number] Hx Patient Social History Marrital Status: Alcohol Use: Denies Use Smoking Status: Former Smoker Former Smoker, Quit: May 31, 2016 Type Used: Cigarettes Recent Foreign Travel: No Contact w/other who traveled: No Recent Infectious Disease Expo: No Immunizations Up To Date Date of Pneumonia Vaccine: May 31, 2016 Date of Influenza Vaccine: May 24, 2017 Surgeries Yes Orthopedic, Transurethral Resection Cardiovascular No Neurological No Genitourinary Yes Prostate Problems Gastrointestinal No Musculoskeletal No Endocrine History of Endocrine Disorders: No HEENT History of HEENT Disorders: No Cancer Yes Prostate, Lymphoma Psychosocial History of Psychiatric Problem: No Integumentary History of Skin or Integumenta: No Family Medical History Significant Family History: No Pertinent Family Hx Review of Systems Constitutional: chills, fever EENTM: No blurred vision, No double vision, No nose congestion, No throat pain Respiratory: cough (dry,mild), dyspnea on exertion, No phlegm, short of breath Cardiovascular: No chest pain, No palpitations Gastrointestinal: No abdominal pain, No constipation, No diarrhea, No nausea, No vomiting Genitourinary: No discharge, No dysuria Musculoskeletal: back pain (left sided), No joint pain Skin: no symptoms reported Psychiatric/Neurological: No Symptoms Reported Physical Exam Physical Exam Vital Signs Vital Sign - Last 12Hours 05/31/17 17:06 Pulse 76 Pulse Ox 93 O2 Delivery Room Air Capillary Refill : General Appearance: No Apparent Distress, WD/WN HEENT: PERRL/EOMI, Moist Mucous Membranes Neck: Non Tender, Supple Respiratory: Lungs Clear, Normal Breath Sounds, No Accessory Muscle Use, No Respiratory Distress Cardiovascular: Regular Rate, Rhythm, No Edema, No JVD, No Murmur Gastrointestinal: Normal Bowel Sounds, Non Tender, Soft Back: Normal Inspection Extremity: Non Tender, No Calf Tenderness, No Pedal Edema Neurologic/Psychiatric: Alert, Oriented x3, No Motor/Sensory Deficits, Normal Mood/Affect Skin: Normal Color, Warm/Dry Results Results/Procedures Lab Laboratory Tests 05/31/17 17:15 Assessment/Plan Admission Diagnosis Left sided pleural effusion Diagnosis/Problems Diagnosis/Problems (1) Pleural effusion on left Status: Acute Assessment & Plan: CXR ordered Will get CBC/CMP as well CAP coverage with rocephin and azithromycin Pulm consulted appreciate recs Titrate O2 >90% (2) Non-Hodgkin lymphoma Status: Chronic Assessment & Plan: In remission per patient On maintenance Will consult Dr. Voss (3) Prostate CA Status: Chronic Assessment & Plan: s/p TURP and had recurrence 2 years ago now s/p radiation Asymptomatic (4) Prophylactic measure Assessment & Plan: Lovenox in AM Regular diet Saline Lock Clinical Quality Measures DVT/VTE Risk/Contraindication: Risk Factor Score Per Nursin RFS Level Per Nursing on Admit: 3=High NELSON OSWALD MD May 31, 2017 16:34
[2017-05-31] MEDS ORDERED: RT-ALBUTEROL SULF 2.5 MG/3 ML PRE-MIX VIAL IH PRN ×2 (17:00→17:30)
[2017-05-31] MEDS ORDERED: ACETAMINOPHEN 500 MG TAB (TYLENOL) PO PRN (17:00)
[2017-05-31 17:06] VITALS: BP 117/57
--- NOTE | 2017-05-31 17:06 | Diagnostic Imaging Report ---
INDICATION: Left pleural effusion, shortness of air. COMPARISON STUDY: There are no recent exams. FINDINGS: Frontal and lateral views of the chest demonstrate moderate to large left pleural effusion. No effusion is seen on the right side. There is adjacent atelectasis. The vascularity is normal. The heart size is within normal limits but is partially obscured by the left pleural effusion. A portacatheter is in place. IMPRESSION: There is a moderate to large left pleural effusion. Dictated by: Dictated on workstation # [id number]
[2017-05-31] MEDS: cefTRIAXone INJECTION 1,000 MG in NS (IVPB) 50 ML IV SCH (17:11)
[2017-05-31] MEDS ORDERED: ACETAMINOPHEN 325 MG TABLET/CAPLET (TYLENOL) PO PRN (17:30)
[2017-05-31] MEDS ORDERED: AZITHROMYCIN 500 MG/NS 250 ML IVPB IV NR ×2 (17:30)
[2017-05-31 17:31] LABS: BASOPHILS % (AUTO) 0 % (0-10); EOSINOPHILS # (AUTO) 0.1 10^3/uL (0.0-0.3); EOSINOPHILS % (AUTO) 1 % (0-10); LYMPHOCYTES # (AUTO) 0.9 X 10^3 (1.0-4.0); LYMPHOCYTES % (AUTO) 13 % (12-44); MEAN CORPUSCULAR HEMOGLOBIN 30 PG (25-34); MEAN CORPUSCULAR HGB CONC 34 G/DL (32-36); MEAN CORPUSCULAR VOLUME 87 FL (80-99); MEAN PLATELET VOLUME 9.5 FL (7.4-10.4); MONOCYTES # (AUTO) 0.9 X 10^3 (0.0-1.0); MONOCYTES % (AUTO) 14 % (0-12); NEUTROPHILS % (AUTO) 73 % (42-75); PLATELET COUNT 206 10^3/uL (130-400); RED BLOOD COUNT 4.02 10^6/uL (4.35-5.85); RED CELL DISTRIBUTION WIDTH 14.4 % (10.0-14.5); WHITE BLOOD COUNT 6.8 10^3/uL (4.3-11.0)
[2017-05-31 17:44] LABS: INR 1.3 (0.8-1.4); PROTHROMBIN TIME PATIENT 15.8 SEC (12.2-14.7)
[2017-05-31] MEDS: ONDANSETRON 4 MG/2 ML (SDV) Z0FRAN IV SCH ×2 (17:53→23:00)
[2017-05-31 17:57] LABS: ALBUMIN 3.8 GM/DL (3.2-4.5); BILIRUBIN,TOTAL 0.8 MG/DL (0.1-1.0); CALCIUM 9.1 MG/DL (8.5-10.1); CREATININE SERUM 1.38 MG/DL (0.60-1.30); POTASSIUM 3.6 MMOL/L (3.6-5.0); TOTAL PROTEIN 7.4 GM/DL (6.4-8.2)
[2017-05-31] MEDS: RT-ALBUTEROL SULF 2.5 MG/3 ML PRE-MIX VIAL IH SCH (18:33)
[2017-05-31] MEDS ORDERED: ALLO100T PO (18:35)
[2017-05-31] MEDS ORDERED: ASPI-983 PO (18:35)
[2017-05-31] MEDS ORDERED: FA/M1TAB29 PO (18:35)
[2017-05-31 20:17] VITALS: BP 106/56
[2017-06-01 00:30] VITALS: BP 125/59
[2017-06-01] MEDS: RT-ALBUTEROL SULF 2.5 MG/3 ML PRE-MIX VIAL IH SCH ×2 (02:30→09:10)
[2017-06-01 04:20] VITALS: BP 112/59
[2017-06-01] MEDS: ONDANSETRON 4 MG/2 ML (SDV) Z0FRAN IV SCH ×2 (04:36→10:21)
[2017-06-01 08:00] VITALS: BP 107/69
--- NOTE | 2017-06-01 08:39 | Pulmonary Consultation ---
History of Present Illness History of Present Illness Date of Consultation 06/01/17 08:26 Time Seen by Provider: 08:26 Date of Admission History of Present Illness 71yo with hx of nonhodgkins lymphoma, prostate cancer, and recurrent pleural effusion. Pt was a direct admit from Dr. Smith secondary to pleural effusion and worsening SOB, chills, and fever. He has had 2 prior thoracentesis. Allergies and Home Medications Allergies Coded Allergies: No Known Drug Allergies (Unverified , 05/31/17) Home Medications Allopurinol 100 Mg Tablet, 200 MG PO DAILY, (Reported) Aspirin 81 Mg Tablet.dr, 81 MG PO DAILY, (Reported) Multivit-Min/FA/Lycopene/Lut 1 Each Tablet, 1 TAB PO DAILY, (Reported) Past Npgfzkt-Cjcamw-Pqgwim Hx Patient Social History Alcohol Use: Denies Use Recreational Drug Use: No Smoking Status: Former Smoker Type Used: Cigarettes Former Smoker, Quit: May 31, 2016 Recent Foreign Travel: No Contact w/Someone Who Travel: No Recent Infectious Disease Expo: No Recent Hopitalizations: No Immunizations Up To Date Date of Pneumonia Vaccine: May 31, 2016 Date of Influenza Vaccine: May 24, 2017 Surgeries History of Surgeries: Yes Surgeries: Orthopedic, Transurethral Resection Respiratory History of Respiratory Disorde: No Cardiovascular History of Cardiac Disorders: No Neurological History of Neurological Disord: No Genitourinary History of Genitourinary Disor: Yes Genitourinary Disorders: Prostate Problems Gastrointestinal History of Gastrointestinal Di: No Musculoskeletal History of Musculoskeletal Dis: Yes (BILAT KNEWW REPLACEMENT) Endocrine History of Endocrine Disorders: No HEENT History of HEENT Disorders: No Cancer History of Cancer: Yes (NON HODGKINS LYMPOMA) Cancer: Prostate, Lymphoma Did You Recieve Any Treatments: Yes Type of Tx Receive: Chemotherapy Cancer Comment: LAST TREATMENT FEBRUARY 2017 Psychosocial History of Psychiatric Problem: No Integumentary History of Skin or Integumenta: No Blood Transfusions History of Blood Disorders: No Adverse Reaction to a Blood Tr: No Family Medical History Significant Family History: No Pertinent Family Hx Family Medial History: FH: Parkinson's disease 19 MOTHER SON FHx: cancer Kelly Gehrig's disease Neoplasm 19 FATHER Stroke 19 MOTHER Exam Exam Vital Signs Date Time Temp Pulse Resp B/P (MAP) Pulse Ox O2 Delivery O2 Flow Rate FiO2 06/01/17 08:00 100.0 63 24 107/69 94 Room Air 06/01/17 04:20 98.1 71 18 112/59 96 Room Air 06/01/17 02:30 94 Room Air 06/01/17 00:30 98.8 70 18 125/59 95 Room Air 05/31/17 20:17 100.2 78 24 106/56 93 Room Air 05/31/17 19:40 95 Nasal Cannula 2.00 05/31/17 18:36 98 Nasal Cannula 2.00 05/31/17 17:36 98 Nasal Cannula 2.00 05/31/17 17:06 76 93 05/31/17 17:06 93 Room Air 05/31/17 16:15 100.5 93 24 117/57 96 Room Air General Appearance: No Apparent Distress, WD/WN HEENT: PERRL/EOMI, Moist Mucous Membranes Neck: Non Tender, Supple Respiratory: Lungs Clear, Normal Breath Sounds, No Accessory Muscle Use, No Respiratory Distress Cardiovascular: Regular Rate, Rhythm, No Edema, No JVD, No Murmur Extremity: Non Tender, No Calf Tenderness, No Pedal Edema Neurologic/Psychiatric: Alert, Oriented x3, No Motor/Sensory Deficits, Normal Mood/Affect Skin: Normal Color, Warm/Dry Results Lab Laboratory Tests 05/31/17 17:15 Assessment/Plan Assessment/Plan Left pleural effusion probably secondary to lymphoma -Check BNP -Check CT of chest with contrast -Consult Dr. Voss -Continue Abx Nonhodgkins lymphoma Hx of prostate CA Diagnosis/Problems Problems/Diagonsis (1) Pleural effusion on left Status: Acute Assessment & Plan: CXR ordered Will get CBC/CMP as well CAP coverage with rocephin and azithromycin Pulm consulted appreciate recs Titrate O2 >90% (2) Non-Hodgkin lymphoma Status: Chronic Assessment & Plan: In remission per patient On maintenance Will consult Dr. Voss (3) Prostate CA Status: Chronic Assessment & Plan: s/p TURP and had recurrence 2 years ago now s/p radiation Asymptomatic (4) Prophylactic measure Assessment & Plan: Lovenox in AM Regular diet Saline Lock Clinical Quality Measures DVT/VTE Risk/Contraindication: Risk Factor Score Per Nursin RFS Level Per Nursing on Admit: 3=High LORE OCAMPO DO Jun 01, 2017 08:39
[2017-06-01] MEDS ORDERED: ENOXAPARIN 40 MG/0.4 ML (LOVENOX) SYR SC SCH (09:00)
[2017-06-01 10:44] LABS: BASOPHILS % (AUTO) 0 % (0-10); EOSINOPHILS # (AUTO) 0.1 10^3/uL (0.0-0.3); EOSINOPHILS % (AUTO) 1 % (0-10); LYMPHOCYTES # (AUTO) 0.8 X 10^3 (1.0-4.0); LYMPHOCYTES % (AUTO) 14 % (12-44); MEAN CORPUSCULAR HEMOGLOBIN 30 PG (25-34); MEAN CORPUSCULAR HGB CONC 34 G/DL (32-36); MEAN CORPUSCULAR VOLUME 87 FL (80-99); MEAN PLATELET VOLUME 9.3 FL (7.4-10.4); MONOCYTES # (AUTO) 0.8 X 10^3 (0.0-1.0); MONOCYTES % (AUTO) 14 % (0-12); NEUTROPHILS # (AUTO) 3.9 X 10^3 (1.8-7.8); NEUTROPHILS % (AUTO) 71 % (42-75); PLATELET COUNT 201 10^3/uL (130-400); RED BLOOD COUNT 3.82 10^6/uL (4.35-5.85); RED CELL DISTRIBUTION WIDTH 14.3 % (10.0-14.5); WHITE BLOOD COUNT 5.6 10^3/uL (4.3-11.0)
[2017-06-01] MEDS ORDERED: ONDANSETRON 4 MG/2 ML (SDV) Z0FRAN IV PRN (11:00)
--- NOTE | 2017-06-01 11:00 | Progress Note-Hospitalist ---
Subjective HPI/CC On Admission Date Seen by Provider: Jun 01, 2017 Time Seen by Provider: 10:30 Pt is a 71yoCM with a PMH of nonhodgkin's lymphoma, prostate cancer, and recurrent pleural effusions who was direct admitted from Dr. Smith's office for evaluation of pleural effusion. He has had recurrent effusions 2 times earlier this year necessitating pleurocentesis. He started to feel worse on Wednesday and was having SOB, chills, and fevers as well. He has started to have some left back pain as well. He called Dr. Voss this morning who receommended he see Dr Smith today. At Dr. Smith's office he was found to have a temperature of 99.8 and a CXR showed a left sided pleural effusion. He was then directed admitted her for evaluation and pulmonary consultation. Subjective/Events-last exam Pt reports doing well this morning. We discussed potential for Pleur-X catheter and he seemed interested. Otherwise no complaints other than feeling hungry. Objective Exam Vital Signs Vital Sign - Last 12Hours 05/31/17 05/31/17 16:15 17:36 Temp 100.5 Pulse 93 Resp 24 B/P (MAP) 117/57 Pulse Ox 96 O2 Delivery Room Air O2 Flow Rate 2.00 Capillary Refill : General Appearance: No Apparent Distress, WD/WN Respiratory: Lungs Clear, No Accessory Muscle Use, No Respiratory Distress Cardiovascular: Regular Rate, Rhythm, No Edema, No Murmur Extremity: No Pedal Edema Neurologic/Psychiatric: Alert, Oriented x3, Normal Mood/Affect Results/Procedures Lab Laboratory Tests 05/31/17 17:15 06/01/17 10:34 Assessment/Plan Assessment and Plan Assess & Plan/Chief Complaint Pleural Effusion, recurrent Diagnosis/Problems Diagnosis/Problems (1) Pleural effusion on left Status: Acute Assessment & Plan: CAP coverage with rocephin and azithromycin Pulm consulted appreciate recs Titrate O2 >90% Discussed possible pleur-x catheter with him, will defer further questions to Dr. Jaffe (2) Non-Hodgkin lymphoma Status: Chronic Assessment & Plan: In remission per patient On maintenance Will consult Dr. Voss (3) Prostate CA Status: Chronic Assessment & Plan: s/p TURP and had recurrence 2 years ago now s/p radiation Asymptomatic (4) Normocytic anemia Assessment & Plan: Mild, trend (5) Prophylactic measure Assessment & Plan: Lovenox in AM Regular diet Saline NELSON King MD Jun 01, 2017 11:00
[2017-06-01 11:06] LABS: ANION GAP 10 MMOL/L (5-14); BLOOD UREA NITROGEN 17 MG/DL (7-18); BUN/CREATININE RATIO 15; CALCIUM 9.2 MG/DL (8.5-10.1); CARBON DIOXIDE 21 MMOL/L (21-32); CHLORIDE 106 MMOL/L (98-107); GFR ESTIMATED > 60; GLUCOSE 125 MG/DL (70-105); POTASSIUM 3.4 MMOL/L (3.6-5.0); SODIUM 137 MMOL/L (135-145)
[2017-06-01] MEDS ORDERED: CATHETER FLUSH 10 ML SYR IV PRN (11:15)
[2017-06-01 12:00] VITALS: BP 106/68
[2017-06-01] MEDS: CATHETER FLUSH 10 ML SYR IV SCH ×2 (15:34→22:00)
[2017-06-01] MEDS: cefTRIAXone INJECTION 1,000 MG in NS (IVPB) 50 ML IV SCH (15:34)
[2017-06-01 16:00] VITALS: BP 117/63
[2017-06-01] MEDS ORDERED: NS 100 ML (IVPB) BAG IV ONE (16:30)
[2017-06-01] MEDS ORDERED: IOHEXOL 350 MG/ML 150 ML (OMNIPAQUE 350) VIAL IV ONE (16:30)
--- NOTE | 2017-06-01 17:31 | Diagnostic Imaging Report ---
PROCEDURE: CT angiography of the chest with contrast. TECHNIQUE: Multiple contiguous axial images were obtained through the chest after uneventful bolus administration of intravenous contrast. Reconstructed CTA MIP acquisitions were also performed. INDICATION: Left pleural effusion, possible empyema, lymphoma, possible pulmonary emboli. COMPARISON STUDY: CT scan of the chest dated 03/31/2017. FINDINGS: Examination demonstrates no pulmonary embolism, aortic dissection or aneurysm. The heart size is normal. Some calcifications are present in the coronary arteries. No pericardial effusion is present. The right lung remains clear. Since previous examination, the left pleural effusion has increased. There is some adjacent atelectasis. Along the left lateral chest wall, this is starting to become somewhat loculated. A bandlike area of increased density along the left side of the mediastinum is again identified. This has increased from 17 to 22 mm in thickness. Some lymph nodes are seen within this. Visualized portions of the abdomen appear unremarkable. Spleen is incompletely visualized but appears a little prominent. This is unchanged. IMPRESSION: 1. Since previous exam, the left pleural effusion has increased. This is starting to become somewhat loculated along the left lateral chest wall without definite empyema forming. 2. Bandlike area of increased density along the left superior mediastinum has thickened since previous exam. Some of this is atelectasis but there are several small lymph nodes within this. Dictated by: Dictated on workstation # [id number]
[2017-06-01 20:00] VITALS: BP 120/60
[2017-06-02 00:31] VITALS: BP 106/62
[2017-06-02 04:35] VITALS: BP 115/70
[2017-06-02] MEDS: CATHETER FLUSH 10 ML SYR IV SCH (05:30)
[2017-06-02 08:30] VITALS: BP 117/70
--- NOTE | 2017-06-02 08:45 | Pulmonary Progress Note ---
Exam Exam Vital Signs Date Time Temp Pulse Resp B/P (MAP) Pulse Ox O2 Delivery O2 Flow Rate FiO2 06/02/17 08:30 Room Air 06/02/17 04:35 98.5 62 24 115/70 91 Room Air 06/02/17 00:31 98.5 65 24 106/62 93 Room Air 06/01/17 20:00 98.7 74 18 120/60 95 Room Air 06/01/17 19:40 Room Air 06/01/17 16:00 98.7 69 22 117/63 96 Room Air 06/01/17 12:00 99.6 62 20 106/68 93 Room Air 06/01/17 09:10 94 Room Air General Appearance: No Apparent Distress, WD/WN HEENT: PERRL/EOMI, Moist Mucous Membranes Neck: Non Tender, Supple Respiratory: Lungs Clear, Normal Breath Sounds, No Accessory Muscle Use, No Respiratory Distress Cardiovascular: Regular Rate, Rhythm, No Edema, No JVD, No Murmur Extremity: Non Tender, No Calf Tenderness, No Pedal Edema Neurologic/Psychiatric: Alert, Oriented x3, No Motor/Sensory Deficits, Normal Mood/Affect Skin: Normal Color, Warm/Dry Results Lab Laboratory Tests 05/31/17 17:15 06/01/17 10:34 Assessment/Plan Assessment/Plan Left pleural effusion with hx of lymphoma -CT scan reviewed and shows a loculated left pleural effusion. Will have radiology do thoracentesis for diagnostic purposes. -Dr. Voss does not believe this is secondary to lymphoma. Nonhodgkins lymphoma Hx of prostate CA 232 Clinical Quality Measures DVT/VTE Risk/Contraindication: Risk Factor Score Per Nursin RFS Level Per Nursing on Admit: 3=High LORE OCAMPO DO Jun 02, 2017 08:45
[2017-06-02] MEDS ORDERED: AZITHROMYCIN 250 MG TAB (ZITHROMAX) PO SCH (09:00)
[2017-06-02] MEDS ORDERED: LIDOCAINE 1% INJ 20 ML (XYLOCAINE) VIAL ONE (09:47)
[2017-06-02] MEDS ORDERED: LIDOCAINE 1% INJ 20 ML (XYLOCAINE) VIAL INJ ONE (10:15)
[2017-06-02] MEDS ORDERED: AMOX875T2 PO (10:21)
[2017-06-02] MEDS ORDERED: AZIT250T5 PO (10:21)
[2017-06-02] MEDS ORDERED: LACT1CAP64 PO (10:21)
--- NOTE | 2017-06-02 10:55 | Discharge Summary-Hospitalist ---
Diagnosis/Chief Complaint Date of Admission May 31, 2017 at 4:05 pm Date of Discharge Discharge Date: Jun 02, 2017 Admission Diagnosis Left sided pleural effusion Discharge Diagnosis Pleural Effusion, recurrent (1) Pleural effusion on left Status: Acute Assessment & Plan: CAP coverage with rocephin and azithromycin Pulm consulted appreciate recs Titrate O2 >90% Plan for tap today and will DC home afterwards (2) Non-Hodgkin lymphoma Status: Chronic Assessment & Plan: In remission per patient On maintenance Dr. Voss consulted, appreciate recs (3) Prostate CA Status: Chronic Assessment & Plan: s/p TURP and had recurrence 2 years ago now s/p radiation Asymptomatic (4) Normocytic anemia Assessment & Plan: Mild, trend (5) Prophylactic measure Assessment & Plan: Lovenox held for procedure Regular diet Saline Lock Discharge Summary Discharge Physical Examination Allergies: Coded Allergies: No Known Drug Allergies (Unverified , 05/31/17) Vitals & I&Os Vital Signs Date Time Temp Pulse Resp B/P (MAP) Pulse Ox O2 Delivery O2 Flow Rate FiO2 06/02/17 08:30 97.4 59 20 117/70 96 Room Air 05/31/17 19:40 2.00 Hospital Course Pt is a 71yoCM with a PMh of non hodkin's lymphoma, prostate cancer, and recurrent pleural effusions who was direct admitted from his PCP's office for evaluation of recurrent pleural effusion. He developed SOB 3-4 prior to admission and then developed a fever prompting evaluation. CXR at his PCP's showed pleural effusion and he was admitted for pulmonary evaluation. He was start on CAP coverage and ultimately had a pleurocentesis drained by IR on . Cultures were sent along with cytology and flow cytometry. We discussed the option of Pleur-X catheter but will defer that at this time. He was discharged home on Amoxil and Azithromycin to complete 7 days of abx. Labs (last 24 hrs) Laboratory Tests 06/01/17 15:20: B-Type Natriuretic Peptide 83.5 Microbiology 05/31/17 Blood Culture - Preliminary, Resulted No growth Discharge Home Medications: Active Scripts Active Probiotic (Lactobacillus Combo No.11) 1 Each Cap.sprink 1 Each PO DAILY 14 Days Azithromycin 250 Mg Tablet 250 Mg PO DAILY 4 Days Amoxicillin 875 Mg Tablet 875 Mg PO BID 4 Days Reported Complete Multi 50+ Tablet (Multivit-Min/FA/Lycopene/Lut) 1 Each Tablet 1 Tab PO DAILY Aspirin EC (Aspirin) 81 Mg Tablet. 81 Mg PO DAILY Allopurinol 100 Mg Tablet 200 Mg PO DAILY Instructions to patient/family Please see electronic discharge instructions given to patient. Clinical Quality Measures DVT/VTE Risk/Contraindication: Risk Factor Score Per Nursin RFS Level Per Nursing on Admit: 3=High Copy Copies To 1: AMAURI SCOTT DO Copies To 2: LORE OCAMPO DO; MICHELLE VOSS Problem Qualifiers (1) Non-Hodgkin lymphoma: Non-Hodgkin lymphoma type: follicular NELSON OSWALD MD Jun 02, 2017 10:55 am
--- NOTE | 2017-06-02 11:01 | Diagnostic Imaging Report ---
PA view of the chest. INDICATION: Post thoracentesis. FINDINGS: There is no pneumothorax seen after thoracentesis. There is improvement in the aeration of the left lower lobe and improved left basilar atelectasis with small remaining left effusion or pleural thickening seen. The right lung appears clear. The heart size is mildly enlarged. Infusion port through the left subclavian route terminates in the upper SVC level. IMPRESSION: Remaining small left pleural effusion and suggestion of pleural thickening. Mild left basilar atelectasis. Dictated by: Dictated on workstation # [id number]
[2017-06-02 11:17] LABS: GLUCOSE,BODY FLUID 88 MG/DL; LDH,BODY FLUID 432 U/L; TOTAL PROTEIN,BODY FLUID 4.8 G/DL
--- NOTE | 2017-06-02 11:32 | Diagnostic Imaging Report ---
EXAMINATION: Ultrasound guided thoracentesis. INDICATION: Left pleural effusion persistent of lymphoma. CONSENT: Informed consent was obtained from the patient. The risks, benefits, potential complications and alternatives were reviewed and all questions answered to the patient's satisfaction. FINDINGS: Large left pleural effusion. PROCEDURE: After sterile preparation and draping, 1% lidocaine was utilized for local anesthesia. An appropriate intercostal approach is selected based on preliminary scanning with ultrasound. Under live visualization with ultrasound, 6.5 Croatian drainage catheter is introduced with trocar technique into the left pleural space. Image of proper location of the needle is documented. The needle is removed and the sheath is left in the pleural space. Initially no fluid return within is seen. After manipulation and repositioning, fluid was obtained. A total of 1.5 L of mildly thick yellow-white fluid is drained. The sheath is removed at the end of the drainage procedure. The fluid is sent to the lab for analysis. The patient tolerated the procedure well with no immediate complications. IMPRESSION: Successful ultrasound-guided right thoracentesis. Dictated by: Dictated on workstation # [id number]
--- NOTE | 2017-06-02 13:52 | CONSULTATION REPORT ---
DATE OF SERVICE: 06/01/2017 REFERRING PHYSICIAN: Belinda Vences M.D. PRIMARY PHYSICIAN: Sanket Smith D.O. The patient is admitted to room 413. IMPRESSION: 1. A 71-year-old male admitted with increasing shortness of breath, fever, shaking chills and pleuritic left-sided chest pain. 2. 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 Currently on maintenance Rituxan with the first dose administered in mid April 2017. 3. Persistent left pleural effusion since early 2016, which had improved after chemotherapy, but not completely cleared. This has increased slightly during the current admission. 4. History of prostate cancer in 2003, status post radical retropubic prostatectomy with the PSA recurrence in 2013 requiring pelvic radiation therapy. RECOMMENDATIONS: 1. Agree with broad spectrum antibiotic therapy as patient is immunocompromised. 2. Proceed with diagnostic and therapeutic thoracentesis and send fluid for both cytology as well as cultures to find the etiology of the left pleural effusion. 3. Agree with CT angiogram because of new onset dyspnea on exertion and we will follow results when available. 4. I will follow the patient with you and make appropriate recommendations when the cytology and culture results are available. 5. If he has evidence of progressive lymphoma, we will discuss about further treatment options. BRIEF HISTORY: The patient is a 71-year-old male, who complained of increasing shortness of breath since 4 days ago. This was associated with shaking chills and fever as well as left-sided pleuritic chest pain. He was evaluated by his primary physician and sent to the hospital for admission. Medical oncology consultation was obtained for further recommendations. 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 The patient had significant left pleural effusion at that time, which was tapped, but I do not have a cytology report. Lymph node biopsy proved the diagnosis and he was treated with chemotherapy using Treanda plus Rituxan regimen x6 cycles with an excellent response. He is on maintenance treatment with Rituxan alone and received the first dose approximately a month ago. Other significant past medical history includes prostate cancer diagnosed in 2003 and underwent radical retropubic prostatectomy. In 2013, he had increasing PSA level and underwent pelvic radiation therapy and is on surveillance now. History of hypocholesterolemia for the last a few years, which is controlled with diet. History of gout in the past and on low dose allopurinol. PRIOR SURGERIES: Include tonsillectomy and adenoidectomy in 1962, bilateral multiple open and arthroscopic knee surgeries for torn meniscus. Radical retropubic prostatectomy in 2003. Right knee replacement in 2005 and left knee replacement in 2012. Incisional hernia repair in 2005 and 2009, the lower abdomen with mesh placement, bilateral cervical lymphnode biopsy in early 2016. SOCIAL HISTORY: The patient is and lives in [place], [place]. He has 5 children, 4 daughters and a son. Four out of the five lives close by and one lives in [place], [place]. He worked with [employer] department in [place] for total of 27 years and retried. He has 40-pack year history of tobacco use, quit approximately a year ago. No alcohol or other recreational drug use. FAMILY HISTORY: Significant for his father who was diagnosed with ALS at the age of 77 years. A son was diagnosed with cancer of the appendix at age of 37 years and from this. PHYSICAL EXAMINATION: Today showed an elderly male, moderately obese, awake and oriented and in mild respiratory distress. VITAL SIGNS: His temperature was 98.7, pulse rate of 69, respirations 22, blood pressure 117/63 with oxygen saturation of 96% on room air. T-max earlier today was 100 degrees Fahrenheit. HEENT: Normocephalic with male pattern baldness, extraocular muscles are intact, conjunctivae are pink, oral mucosa moist. NECK: Supple with no JVD. No cervical, supraclavicular or axillary lymphadenopathy palpable. CHEST: Left-sided port. LUNGS: With slightly decreased breath sounds in the left base. Rest of the lung ward are clear to auscultation without wheezes or rales. CARDIOVASCULAR: Regular in rate and rhythm. No murmurs or gallops heard. ABDOMEN: Obese, soft, nontender with no hepatosplenomegaly or other masses palpable. EXTREMITIES: Showed no edema. NEUROLOGIC: Grossly intact without focal motor deficits. CBC done today showed total white count of 5.6, hemoglobin 11.3, platelet count 201,000 with neutrophil count of 3.9, lymphocyte count of 0.8. Chemistry panel done today showed relatively normal electrolytes except potassium level of 3.4, BUN was 17 and creatinine 1.1 with GFR more than 60 mL/minute. The GFR yesterday at the time of admission was below normal at 51. Liver function studies from yesterday were within normal limits. Chest x-ray done yesterday at the time of admission showed moderate to large left pleural effusion. CT angiogram of the chest done today showed increase with the left pleural effusion since the previous exam that is somewhat loculated along the left lateral chest wall. A band like areas of increased density along the left superior mediastinum as thickened since the previous exam, some of which is due to atelectasis. There were small lymph nodes within this area. Spleen is incompletely visualized and is slightly prominent, but unchanged from before. Thank you for allowing me to participate in this patient's care. I will follow the patient with you and make appropriate recommendations. Job ID: [id number] DocumentID: [id number] Dictated Date: 06/01/2017 17:53:23 Process Chemist Date: 06/02/2017 06:52:07 Dictated By: MICHELLE CEVALLOS MD
== END 2017-06-02 12:35 | disposition home or self-care (01) | DRG 187 ==
LOC: 4TH 16:05
PROVIDERS: ADMIT Family Medicine; ATTEND Family Medicine
PROC: 0W9B3ZX Drainage of Left Pleural Cavity, Percutaneous Approach, Diagnostic (ICD-10-PCS; principal; 2017-06-02)
DX: J90 Pleural effusion, not elsewhere classified (principal); C82.41 Follicular lymphoma grade IIIb, lymph nodes of head, face, and neck; J98.11 Atelectasis; D64.9 Anemia, unspecified; E66.9 Obesity, unspecified; Z85.46 Personal history of malignant neoplasm of prostate; Z90.79 Acquired absence of other genital organ(s); Z92.3 Personal history of irradiation; Z92.21 Personal history of antineoplastic chemotherapy; Z87.891 Personal history of nicotine dependence; Z68.34 Body mass index [BMI] 34.0-34.9, adult; Z96.653 Presence of artificial knee joint, bilateral; Z87.39 Personal history of other diseases of the musculoskeletal system and connective tissue
CPT/HCPCS: 32555; 36415; 71010; 71020; 71275; 80048; 80053; 82945; 83605; 83615; 83880; 84157; 85025; 85610; 87040; 87070; 87075; 87205; 89051; 94640; 94760

== ENCOUNTER 2017-08-30 08:39 | Outpatient (RCR) | payer MEDICARE, OTHER ==
--- NOTE | 2017-07-05 09:06 | Diagnostic Imaging Report ---
INDICATION: Left pleural effusion in patient with non-Hodgkin's lymphoma PA and lateral views of the chest are obtained with comparison made to study of 06/02/2017. Heart size and pulmonary vascularity are within normal limits. There is continued blunting of left costophrenic sulcus. Mild left basilar atelectasis present as well. Left anterior chest wall port is in stable position. IMPRESSION: Left basilar atelectasis and/or pneumonitis with persistent left pleural fluid and/or thickening without significant change from previous exam. Dictated by: Dictated on workstation # [id number]
[2017-07-05 09:31] LABS: BASOPHILS % (AUTO) 1 % (0-10); EOSINOPHILS # (AUTO) 0.3 10^3/uL (0.0-0.3); EOSINOPHILS % (AUTO) 5 % (0-10); HEMATOCRIT 36 % (40-54); LYMPHOCYTES # (AUTO) 0.9 X 10^3 (1.0-4.0); LYMPHOCYTES % (AUTO) 16 % (12-44); MEAN CORPUSCULAR HEMOGLOBIN 28 PG (25-34); MEAN CORPUSCULAR HGB CONC 33 G/DL (32-36); MEAN CORPUSCULAR VOLUME 86 FL (80-99); MEAN PLATELET VOLUME 8.9 FL (7.4-10.4); MONOCYTES # (AUTO) 0.7 X 10^3 (0.0-1.0); MONOCYTES % (AUTO) 13 % (0-12); NEUTROPHILS # (AUTO) 3.6 X 10^3 (1.8-7.8); NEUTROPHILS % (AUTO) 66 % (42-75); PLATELET COUNT 329 10^3/uL (130-400); RED BLOOD COUNT 4.24 10^6/uL (4.35-5.85); RED CELL DISTRIBUTION WIDTH 14.8 % (10.0-14.5); WHITE BLOOD COUNT 5.5 10^3/uL (4.3-11.0)
[2017-07-05 09:51] LABS: ALANINE AMINOTRANSFERASE 15 U/L (0-55); ALBUMIN 4.1 GM/DL (3.2-4.5); ALKALINE PHOSPHATASE 93 U/L (40-136); BILIRUBIN,TOTAL 0.3 MG/DL (0.1-1.0); BUN/CREATININE RATIO 13; CALCIUM 9.5 MG/DL (8.5-10.1); CARBON DIOXIDE 21 MMOL/L (21-32); CHLORIDE 108 MMOL/L (98-107); CREATININE SERUM 1.12 MG/DL (0.60-1.30); GFR ESTIMATED > 60; GLUCOSE 134 MG/DL (70-105); SODIUM 141 MMOL/L (135-145); TOTAL PROTEIN 7.5 GM/DL (6.4-8.2)
[~2017-08-30 08:39] MED LIST changes: +ALLO100T PO; +AMOX875T2 PO; +ASPI-983 PO; +AZIT250T12 PO; -BENDAMUSTINE HCL 180 MG in NS (IVPB) CANCER CENTER 50 ML IV SCH; +FA/M1TAB29 PO; +LACT1CAP64 PO; -MEPERIDINE (DEMEROL) INJ 50 MG/ML CANCER CTR IV PRN; -NS IV 1000 ML (CANCER CTR) IV SCH; -ONDANSETRON 16 MG, DEXAMETHASONE 10 MG/NS 50 ML IVPB IV SCH; +diphenhydrAMINE 25 MG TAB (BENADRYL) CANCER CENTER PO SCH; -diphenhydrAMINE 50 MG/ML INJ (CANCER CENTER) IV PRN
[2017-08-30 09:04] LABS: HEMOGLOBIN 12.3 G/DL (13.3-17.7); MEAN CORPUSCULAR HEMOGLOBIN 28 PG (25-34); RED BLOOD COUNT 4.34 10^6/uL (4.35-5.85); RED CELL DISTRIBUTION WIDTH 16.3 % (10.0-14.5); WHITE BLOOD COUNT 4.4 10^3/uL (4.3-11.0)
[2017-08-30 09:05] LABS: BASOPHILS % (AUTO) 1 % (0-10); EOSINOPHILS # (AUTO) 0.2 10^3/uL (0.0-0.3); EOSINOPHILS % (AUTO) 3 % (0-10); LYMPHOCYTES # (AUTO) 0.8 X 10^3 (1.0-4.0); LYMPHOCYTES % (AUTO) 18 % (12-44); MEAN PLATELET VOLUME 8.2 FL (7.4-10.4); MONOCYTES # (AUTO) 0.7 X 10^3 (0.0-1.0); MONOCYTES % (AUTO) 15 % (0-12); NEUTROPHILS # (AUTO) 2.8 X 10^3 (1.8-7.8); NEUTROPHILS % (AUTO) 63 % (42-75); PLATELET COUNT 268 10^3/uL (130-400)
[2017-08-30 09:30] LABS: ALANINE AMINOTRANSFERASE 21 U/L (0-55); ALBUMIN 3.9 GM/DL (3.2-4.5); ALKALINE PHOSPHATASE 74 U/L (40-136); BILIRUBIN,TOTAL 0.6 MG/DL (0.1-1.0); BUN/CREATININE RATIO 14; CALCIUM 9.5 MG/DL (8.5-10.1); CARBON DIOXIDE 21 MMOL/L (21-32); CHLORIDE 103 MMOL/L (98-107); CREATININE SERUM 1.01 MG/DL (0.60-1.30); GFR ESTIMATED > 60; GLUCOSE 138 MG/DL (70-105); POTASSIUM 3.7 MMOL/L (3.6-5.0); SODIUM 137 MMOL/L (135-145); TOTAL PROTEIN 7.5 GM/DL (6.4-8.2)
[2017-08-30 10:34] LABS: HEMATOCRIT 39 % (40-54); MEAN CORPUSCULAR HGB CONC 32 G/DL (32-36); MEAN CORPUSCULAR VOLUME 89 FL (80-99)
--- NOTE | 2017-08-30 12:07 | Diagnostic Imaging Report ---
INDICATION: Pleural effusion. TECHNIQUE: Two view chest 9:16 AM. CORRELATION STUDY: 07/05/2017 FINDINGS: Left-sided Znxtgn-r-Yukv catheter is present. Tip cannot be well identified. Possible position of the azygos vein not excluded. Heart size, mediastinum and vasculature overall generally stable. Continued blunting left costophrenic angle likely pleural effusion versus pleural thickening. Minimal atelectasis suggested about the left lung base versus infiltrate. Right lung unchanged. Slight accentuated thoracic kyphotic curvature and degenerative changes. IMPRESSION: 1. Chronic pleural thickening and/or effusion left lung base. Minimal atelectasis, infiltrate and/or scarring left lung base. 2. Mediastinal configuration generally stable. 3. Left-sided Xguitc-B-Zztn catheter is present. Tip cannot be well-identified. Possibility of position in the azygos vein suspect and likely present. Dictated by: Dictated on workstation # [id number]
== END 2017-09-14 | disposition home or self-care (01) ==
LOC: ONC 08:39
PROVIDERS: ATTEND Internal Medicine Hematology & Oncology
DX: Z51.11 Encounter for antineoplastic chemotherapy (principal); C82.18 Follicular lymphoma grade II, lymph nodes of multiple sites; M10.9 Gout, unspecified; Z85.46 Personal history of malignant neoplasm of prostate; Z87.891 Personal history of nicotine dependence
CPT/HCPCS: 36591; 71020; 71046; 80053; 83615; 85025; 96413; 99213

== ENCOUNTER 2017-12-20 08:44 | Outpatient (RCR) | payer MEDICARE, OTHER ==
[2017-10-25 10:13] LABS: BASOPHILS % (AUTO) 1 % (0-10); EOSINOPHILS # (AUTO) 0.3 10^3/uL (0.0-0.3); EOSINOPHILS % (AUTO) 6 % (0-10); HEMATOCRIT 39 % (40-54); HEMOGLOBIN 13.5 G/DL (13.3-17.7); LYMPHOCYTES # (AUTO) 1.1 X 10^3 (1.0-4.0); LYMPHOCYTES % (AUTO) 20 % (12-44); MEAN CORPUSCULAR HEMOGLOBIN 30 PG (25-34); MEAN CORPUSCULAR HGB CONC 35 G/DL (32-36); MEAN CORPUSCULAR VOLUME 86 FL (80-99); MEAN PLATELET VOLUME 9.2 FL (7.4-10.4); MONOCYTES # (AUTO) 0.7 X 10^3 (0.0-1.0); MONOCYTES % (AUTO) 13 % (0-12); NEUTROPHILS # (AUTO) 3.3 X 10^3 (1.8-7.8); NEUTROPHILS % (AUTO) 61 % (42-75); PLATELET COUNT 249 10^3/uL (130-400); RED BLOOD COUNT 4.51 10^6/uL (4.35-5.85); RED CELL DISTRIBUTION WIDTH 15.6 % (10.0-14.5); WHITE BLOOD COUNT 5.3 10^3/uL (4.3-11.0)
--- NOTE | 2017-10-25 10:27 | Diagnostic Imaging Report ---
INDICATION: Non-Hodgkin's lymphoma. TIME OF EXAMINATION: 10:13 AM. COMPARISON: 08/30/2017. FINDINGS: The left chest wall port remains in place with the tip near the junction of the left innominate vein and SVC. This is similar to the prior exam. The lungs appear to be clear. There is chronic blunting of the left costophrenic angle, consistent with minimal pleural thickening or pleural fluid. The pulmonary vascularity is normal. There is no pneumothorax. No definite lymphadenopathy is detected. IMPRESSION: Stable chest when compared with the prior exam from 08/30/2017. Dictated by: Dictated on workstation # [id number]
[2017-10-25 10:33] LABS: ALANINE AMINOTRANSFERASE 19 U/L (0-55); ALBUMIN 4.2 GM/DL (3.2-4.5); ALKALINE PHOSPHATASE 65 U/L (40-136); BILIRUBIN,TOTAL 0.4 MG/DL (0.1-1.0); BUN/CREATININE RATIO 14; CALCIUM 9.4 MG/DL (8.5-10.1); CARBON DIOXIDE 22 MMOL/L (21-32); CHLORIDE 109 MMOL/L (98-107); CREATININE SERUM 1.05 MG/DL (0.60-1.30); GFR ESTIMATED > 60; GLUCOSE 117 MG/DL (70-105); POTASSIUM 4.1 MMOL/L (3.6-5.0); SODIUM 140 MMOL/L (135-145); TOTAL PROTEIN 7.3 GM/DL (6.4-8.2)
[~2017-12-20] VITALS: Ht 171.4 cm; Wt 115.7 kg
[2017-12-20 10:00] LABS: BASOPHILS % (AUTO) 1 % (0-10); EOSINOPHILS # (AUTO) 0.2 10^3/uL (0.0-0.3); EOSINOPHILS % (AUTO) 4 % (0-10); HEMATOCRIT 39 % (40-54); HEMOGLOBIN 13.4 G/DL (13.3-17.7); LYMPHOCYTES % (AUTO) 21 % (12-44); MEAN CORPUSCULAR HEMOGLOBIN 30 PG (25-34); MEAN CORPUSCULAR HGB CONC 35 G/DL (32-36); MEAN CORPUSCULAR VOLUME 87 FL (80-99); MEAN PLATELET VOLUME 9.4 FL (7.4-10.4); MONOCYTES # (AUTO) 0.8 X 10^3 (0.0-1.0); MONOCYTES % (AUTO) 16 % (0-12); NEUTROPHILS # (AUTO) 2.9 X 10^3 (1.8-7.8); NEUTROPHILS % (AUTO) 58 % (42-75); PLATELET COUNT 254 10^3/uL (130-400); RED BLOOD COUNT 4.42 10^6/uL (4.35-5.85); RED CELL DISTRIBUTION WIDTH 14.9 % (10.0-14.5); WHITE BLOOD COUNT 4.9 10^3/uL (4.3-11.0)
--- NOTE | 2017-12-20 10:22 | Diagnostic Imaging Report ---
INDICATION: Lymphoma. TIME OF EXAM: 10:02 AM Correlation is made with prior study from 10/25/2017. FINDINGS: Left chest wall port remains in place. Heart size is stable. No infiltrates are seen. The pulmonary vascularity is normal. No significant effusion or pneumothorax is detected. IMPRESSION: Stable chest. No acute feature is detected. Dictated by: Dictated on workstation # [id number]
[2017-12-20 10:27] LABS: ALANINE AMINOTRANSFERASE 23 U/L (0-55); ALBUMIN 4.3 GM/DL (3.2-4.5); ALKALINE PHOSPHATASE 71 U/L (40-136); BILIRUBIN,TOTAL 0.5 MG/DL (0.1-1.0); BUN/CREATININE RATIO 20; CALCIUM 9.7 MG/DL (8.5-10.1); CARBON DIOXIDE 23 MMOL/L (21-32); CHLORIDE 109 MMOL/L (98-107); CREATININE SERUM 1.03 MG/DL (0.60-1.30); GFR ESTIMATED > 60; GLUCOSE 120 MG/DL (70-105); POTASSIUM 4.1 MMOL/L (3.6-5.0); SODIUM 141 MMOL/L (135-145); TOTAL PROTEIN 7.4 GM/DL (6.4-8.2)
== END 2018-01-23 | disposition home or self-care (01) ==
LOC: ONC 08:44
PROVIDERS: ATTEND Internal Medicine Hematology & Oncology
DX: Z51.11 Encounter for antineoplastic chemotherapy (principal); C82.18 Follicular lymphoma grade II, lymph nodes of multiple sites; M10.9 Gout, unspecified; Z85.46 Personal history of malignant neoplasm of prostate; Z87.891 Personal history of nicotine dependence
CPT/HCPCS: 36591; 71046; 80053; 83615; 85025; 96413

== ENCOUNTER 2018-04-11 09:46 | Outpatient (RCR) | payer MEDICARE, OTHER ==
[~2018-04-11] VITALS: Ht 171.4 cm; Wt 115.2 kg
[2018-04-11] MEDS ORDERED: diphenhydrAMINE 25 MG TAB (BENADRYL) CANCER CENTER PO SCH (09:51)
[2018-04-11] MEDS ORDERED: riTUXimab 500 MG, riTUXimab FOR IV INJ CONC 300 MG in NS (IVPB) CANCER CENTER 186 ML IV SCH (09:51)
[2018-04-11] MEDS ORDERED: NS IV 500 ML (CANCER CENTER) 500 ML IV SCH (09:51)
[2018-04-11] MEDS ORDERED: ACETAMINOPHEN 325 MG TAB (TYLENOL) CANCER CTR PO PRN (09:51)
== END 2018-04-22 | disposition home or self-care (01) ==
LOC: ONC 09:46
PROVIDERS: ATTEND Internal Medicine Hematology & Oncology
DX: Z51.11 Encounter for antineoplastic chemotherapy (principal); C82.18 Follicular lymphoma grade II, lymph nodes of multiple sites; M10.9 Gout, unspecified; Z85.46 Personal history of malignant neoplasm of prostate; Z87.891 Personal history of nicotine dependence
CPT/HCPCS: 36591; 96413

== ENCOUNTER → 2018-04-11 | Outpatient (CLI) | payer MEDICARE, OTHER ==
[~2018-04-11] MED LIST changes: -ACETAMINOPHEN 325 MG TAB (TYLENOL) CANCER CTR PO PRN; -NS IV 500 ML (CANCER CENTER) 500 ML IV SCH; -diphenhydrAMINE 25 MG TAB (BENADRYL) CANCER CENTER PO SCH; -riTUXimab 500 MG, riTUXimab FOR IV INJ CONC 300 MG in NS (IVPB) CANCER CENTER 186 ML IV SCH
--- NOTE | 2018-04-11 12:23 | Diagnostic Imaging Report ---
INDICATION: Non-Hodgkin's lymphoma with cough. COMPARISON: 02/14/2018. FINDINGS: Lungs are clear. No pleural effusion or pneumothorax. Stable position of left subclavian Port-A-Cath. Normal heart size. No evidence of hilar lymphadenopathy. IMPRESSION: No acute cardiopulmonary process. Dictated by: Dictated on workstation # [id number]
== END ==
LOC: RAD 09:23
PROVIDERS: ATTEND Nurse Practitioner Adult Health
DX: C82.18 Follicular lymphoma grade II, lymph nodes of multiple sites (principal)
CPT/HCPCS: 71046

== ENCOUNTER 2018-08-01 09:44 | Outpatient (RCR) | payer MEDICARE, OTHER ==
[2018-06-06 10:17] LABS: BASOPHILS % (AUTO) 1 % (0-10); EOSINOPHILS # (AUTO) 0.2 10^3/uL (0.0-0.3); EOSINOPHILS % (AUTO) 5 % (0-10); HEMATOCRIT 39 % (40-54); HEMOGLOBIN 13.6 G/DL (13.3-17.7); LYMPHOCYTES # (AUTO) 1.2 X 10^3 (1.0-4.0); LYMPHOCYTES % (AUTO) 23 % (12-44); MEAN CORPUSCULAR HEMOGLOBIN 30 PG (25-34); MEAN CORPUSCULAR HGB CONC 35 G/DL (32-36); MEAN CORPUSCULAR VOLUME 85 FL (80-99); MEAN PLATELET VOLUME 9.2 FL (7.4-10.4); MONOCYTES % (AUTO) 20 % (0-12); NEUTROPHILS # (AUTO) 2.6 X 10^3 (1.8-7.8); NEUTROPHILS % (AUTO) 52 % (42-75); PLATELET COUNT 248 10^3/uL (130-400); RED BLOOD COUNT 4.53 10^6/uL (4.35-5.85); RED CELL DISTRIBUTION WIDTH 15.1 % (10.0-14.5)
[2018-06-06 10:37] LABS: ALANINE AMINOTRANSFERASE 28 U/L (0-55); ALBUMIN 4.3 GM/DL (3.2-4.5); ALKALINE PHOSPHATASE 74 U/L (40-136); BILIRUBIN,TOTAL 0.6 MG/DL (0.1-1.0); BUN/CREATININE RATIO 14; CALCIUM 9.6 MG/DL (8.5-10.1); CARBON DIOXIDE 19 MMOL/L (21-32); CHLORIDE 105 MMOL/L (98-107); GFR ESTIMATED > 60; GLUCOSE 109 MG/DL (70-105); POTASSIUM 4.2 MMOL/L (3.6-5.0); SODIUM 137 MMOL/L (135-145); TOTAL PROTEIN 7.3 GM/DL (6.4-8.2)
[~2018-08-01] VITALS: Ht 171.4 cm; Wt 113.9 kg
[~2018-08-01 09:44] MED LIST changes: +ACETAMINOPHEN 325 MG TAB (TYLENOL) CANCER CTR PO PRN; +ALTEPLASE 2 MG (CATHFLO) CANCER CENTER IV ONE; +NS IV 500 ML (CANCER CENTER) 500 ML IV SCH; +diphenhydrAMINE 25 MG TAB (BENADRYL) CANCER CENTER PO SCH; +riTUXimab 500 MG, riTUXimab FOR IV INJ CONC 300 MG in NS (IVPB) CANCER CENTER 186 ML IV SCH
[2018-08-01 10:07] LABS: BASOPHILS % (AUTO) 1 % (0-10); EOSINOPHILS # (AUTO) 0.3 10^3/uL (0.0-0.3); EOSINOPHILS % (AUTO) 5 % (0-10); HEMATOCRIT 40 % (40-54); HEMOGLOBIN 13.5 G/DL (13.3-17.7); LYMPHOCYTES # (AUTO) 1.3 X 10^3 (1.0-4.0); LYMPHOCYTES % (AUTO) 24 % (12-44); MEAN CORPUSCULAR HEMOGLOBIN 29 PG (25-34); MEAN CORPUSCULAR HGB CONC 34 G/DL (32-36); MEAN CORPUSCULAR VOLUME 86 FL (80-99); MEAN PLATELET VOLUME 8.9 FL (7.4-10.4); MONOCYTES # (AUTO) 0.9 X 10^3 (0.0-1.0); MONOCYTES % (AUTO) 16 % (0-12); NEUTROPHILS # (AUTO) 3.1 X 10^3 (1.8-7.8); NEUTROPHILS % (AUTO) 55 % (42-75); PLATELET COUNT 299 10^3/uL (130-400); RED CELL DISTRIBUTION WIDTH 14.5 % (10.0-14.5); WHITE BLOOD COUNT 5.5 10^3/uL (4.3-11.0)
[2018-08-01 10:25] LABS: ALANINE AMINOTRANSFERASE 22 U/L (0-55); ALBUMIN 4.3 GM/DL (3.2-4.5); ALKALINE PHOSPHATASE 87 U/L (40-136); BILIRUBIN,TOTAL 0.4 MG/DL (0.1-1.0); BUN/CREATININE RATIO 14; CALCIUM 9.6 MG/DL (8.5-10.1); CARBON DIOXIDE 21 MMOL/L (21-32); CHLORIDE 107 MMOL/L (98-107); CREATININE SERUM 1.11 MG/DL (0.60-1.30); GFR ESTIMATED > 60; GLUCOSE 148 MG/DL (70-105); POTASSIUM 4.2 MMOL/L (3.6-5.0); SODIUM 139 MMOL/L (135-145); TOTAL PROTEIN 7.2 GM/DL (6.4-8.2)
== END 2018-09-04 | disposition home or self-care (01) ==
LOC: ONC 09:44
PROVIDERS: ATTEND Internal Medicine Hematology & Oncology
DX: Z51.11 Encounter for antineoplastic chemotherapy (principal); C82.18 Follicular lymphoma grade II, lymph nodes of multiple sites; M10.9 Gout, unspecified; J90 Pleural effusion, not elsewhere classified; K92.1 Melena; R06.02 Shortness of breath; R53.81 Other malaise; E66.9 Obesity, unspecified; Z68.38 Body mass index [BMI] 38.0-38.9, adult; Z85.46 Personal history of malignant neoplasm of prostate; Z87.891 Personal history of nicotine dependence; Z79.82 Long term (current) use of aspirin; Z79.899 Other long term (current) drug therapy
CPT/HCPCS: 36593; 80053; 83615; 85025; 96413; J9310

== ENCOUNTER 2018-11-21 08:42 | Outpatient (RCR) | payer MEDICARE, OTHER ==
[2018-09-26 10:02] LABS: BASOPHILS # (AUTO) 0.1 10^3/uL (0.0-0.1); BASOPHILS % (AUTO) 1 % (0-10); EOSINOPHILS # (AUTO) 0.3 10^3/uL (0.0-0.3); EOSINOPHILS % (AUTO) 5 % (0-10); HEMATOCRIT 42 % (40-54); HEMOGLOBIN 14.2 G/DL (13.3-17.7); LYMPHOCYTES # (AUTO) 1.3 X 10^3 (1.0-4.0); LYMPHOCYTES % (AUTO) 22 % (12-44); MEAN CORPUSCULAR HEMOGLOBIN 29 PG (25-34); MEAN CORPUSCULAR HGB CONC 34 G/DL (32-36); MEAN CORPUSCULAR VOLUME 86 FL (80-99); MEAN PLATELET VOLUME 9.3 FL (7.4-10.4); MONOCYTES % (AUTO) 17 % (0-12); NEUTROPHILS # (AUTO) 3.3 X 10^3 (1.8-7.8); NEUTROPHILS % (AUTO) 56 % (42-75); PLATELET COUNT 267 10^3/uL (130-400); RED CELL DISTRIBUTION WIDTH 14.9 % (10.0-14.5); WHITE BLOOD COUNT 5.9 10^3/uL (4.3-11.0)
[2018-09-26 10:25] LABS: ALANINE AMINOTRANSFERASE 25 U/L (0-55); ALBUMIN 4.3 GM/DL (3.2-4.5); ALKALINE PHOSPHATASE 82 U/L (40-136); BILIRUBIN,TOTAL 0.5 MG/DL (0.1-1.0); BUN/CREATININE RATIO 15; CALCIUM 9.8 MG/DL (8.5-10.1); CARBON DIOXIDE 22 MMOL/L (21-32); CHLORIDE 107 MMOL/L (98-107); CREATININE SERUM 1.02 MG/DL (0.60-1.30); GFR ESTIMATED > 60; GLUCOSE 129 MG/DL (70-105); POTASSIUM 4.2 MMOL/L (3.6-5.0); SODIUM 141 MMOL/L (135-145); TOTAL PROTEIN 7.3 GM/DL (6.4-8.2)
[~2018-11-21] VITALS: Ht 171.4 cm; Wt 115.7 kg
[~2018-11-21 08:42] MED LIST changes: -ALTEPLASE 2 MG (CATHFLO) CANCER CENTER IV ONE
[2018-11-21 08:59] LABS: BASOPHILS % (AUTO) 1 % (0-10); EOSINOPHILS # (AUTO) 0.3 10^3/uL (0.0-0.3); EOSINOPHILS % (AUTO) 6 % (0-10); HEMATOCRIT 41 % (40-54); HEMOGLOBIN 14.2 G/DL (13.3-17.7); LYMPHOCYTES # (AUTO) 1.7 X 10^3 (1.0-4.0); LYMPHOCYTES % (AUTO) 31 % (12-44); MEAN CORPUSCULAR HEMOGLOBIN 30 PG (25-34); MEAN CORPUSCULAR HGB CONC 34 G/DL (32-36); MEAN CORPUSCULAR VOLUME 87 FL (80-99); MEAN PLATELET VOLUME 9.4 FL (7.4-10.4); MONOCYTES # (AUTO) 0.6 X 10^3 (0.0-1.0); MONOCYTES % (AUTO) 11 % (0-12); NEUTROPHILS # (AUTO) 2.9 X 10^3 (1.8-7.8); NEUTROPHILS % (AUTO) 52 % (42-75); PLATELET COUNT 277 10^3/uL (130-400); RED CELL DISTRIBUTION WIDTH 15.2 % (10.0-14.5); WHITE BLOOD COUNT 5.5 10^3/uL (4.3-11.0)
[2018-11-21 09:19] LABS: ALANINE AMINOTRANSFERASE 24 U/L (0-55); ALBUMIN 4.2 GM/DL (3.2-4.5); ALKALINE PHOSPHATASE 75 U/L (40-136); BILIRUBIN,TOTAL 0.4 MG/DL (0.1-1.0); BUN/CREATININE RATIO 15; CALCIUM 9.7 MG/DL (8.5-10.1); CARBON DIOXIDE 19 MMOL/L (21-32); CHLORIDE 108 MMOL/L (98-107); CREATININE SERUM 1.07 MG/DL (0.60-1.30); GFR ESTIMATED > 60; GLUCOSE 164 MG/DL (70-105); POTASSIUM 4.1 MMOL/L (3.6-5.0); SODIUM 139 MMOL/L (135-145); TOTAL PROTEIN 7.4 GM/DL (6.4-8.2)
== END 2018-12-25 | disposition home or self-care (01) ==
LOC: ONC 08:42
PROVIDERS: ATTEND Internal Medicine Hematology & Oncology
DX: Z51.11 Encounter for antineoplastic chemotherapy (principal); C82.18 Follicular lymphoma grade II, lymph nodes of multiple sites; M10.9 Gout, unspecified; J90 Pleural effusion, not elsewhere classified; K92.1 Melena; R06.02 Shortness of breath; R53.81 Other malaise; E66.9 Obesity, unspecified; Z68.38 Body mass index [BMI] 38.0-38.9, adult; Z85.46 Personal history of malignant neoplasm of prostate; Z87.891 Personal history of nicotine dependence; Z79.82 Long term (current) use of aspirin; Z79.899 Other long term (current) drug therapy
CPT/HCPCS: 36591; 80053; 83615; 85025; 96413; J9312

== ENCOUNTER 2019-04-11 09:53 | Outpatient (RCR) | payer MEDICARE, OTHER ==
[2019-01-17 09:00] LABS: BASOPHILS % (AUTO) 0 % (0-10); EOSINOPHILS # (AUTO) 0.3 10^3/uL (0.0-0.3); EOSINOPHILS % (AUTO) 5 % (0-10); HEMATOCRIT 43 % (40-54); HEMOGLOBIN 14.8 G/DL (13.3-17.7); LYMPHOCYTES # (AUTO) 1.7 X 10^3 (1.0-4.0); LYMPHOCYTES % (AUTO) 25 % (12-44); MEAN CORPUSCULAR HEMOGLOBIN 30 PG (25-34); MEAN CORPUSCULAR HGB CONC 35 G/DL (32-36); MEAN CORPUSCULAR VOLUME 87 FL (80-99); MEAN PLATELET VOLUME 9.5 FL (7.4-10.4); MONOCYTES % (AUTO) 15 % (0-12); NEUTROPHILS # (AUTO) 3.7 X 10^3 (1.8-7.8); NEUTROPHILS % (AUTO) 55 % (42-75); PLATELET COUNT 268 10^3/uL (130-400); RED CELL DISTRIBUTION WIDTH 14.4 % (10.0-14.5); WHITE BLOOD COUNT 6.7 10^3/uL (4.3-11.0)
[2019-01-17 09:20] LABS: ALANINE AMINOTRANSFERASE 26 U/L (0-55); ALBUMIN 4.4 GM/DL (3.2-4.5); ALKALINE PHOSPHATASE 76 U/L (40-136); BILIRUBIN,TOTAL 0.5 MG/DL (0.1-1.0); BUN/CREATININE RATIO 16; CALCIUM 9.7 MG/DL (8.5-10.1); CARBON DIOXIDE 22 MMOL/L (21-32); CHLORIDE 108 MMOL/L (98-107); CREATININE SERUM 1.08 MG/DL (0.60-1.30); GFR ESTIMATED > 60; GLUCOSE 118 MG/DL (70-105); POTASSIUM 4.1 MMOL/L (3.6-5.0); SODIUM 139 MMOL/L (135-145); TOTAL PROTEIN 7.4 GM/DL (6.4-8.2)
[~2019-04-11 09:53] MED LIST changes: +ACETAMINOPHEN 325 MG TAB (TYLENOL) CANCER CTR PO PRN; -BARIUM SUSPENSION 2.1% (VANILLA SILQ) 450 ML PO ONE; -CATHETER FLUSH 10 ML SYR IV PRN; -HOLD METFORMIN - RECEIVED CONTRAST 20 ML VIAL IV SCH; -IOHEXOL 350 MG/ML 100 ML (OMNIPAQUE 350) VIAL IV ONE; -NS 100 ML (IVPB) BAG IV ONE; +NS IV 500 ML (CANCER CENTER) 500 ML IV SCH; +diphenhydrAMINE 25 MG TAB (BENADRYL) CANCER CENTER PO SCH; +riTUXimab 500 MG, riTUXimab FOR IV INJ CONC 300 MG in NS (IVPB) CANCER CENTER 186 ML IV SCH
[2019-04-11 10:11] LABS: BASOPHILS # (AUTO) 0.1 10^3/uL (0.0-0.1); BASOPHILS % (AUTO) 1 % (0-10); EOSINOPHILS # (AUTO) 0.4 10^3/uL (0.0-0.3); EOSINOPHILS % (AUTO) 5 % (0-10); HEMATOCRIT 44 % (40-54); HEMOGLOBIN 14.8 G/DL (13.3-17.7); LYMPHOCYTES # (AUTO) 1.8 X 10^3 (1.0-4.0); LYMPHOCYTES % (AUTO) 26 % (12-44); MEAN CORPUSCULAR HEMOGLOBIN 30 PG (25-34); MEAN CORPUSCULAR HGB CONC 34 G/DL (32-36); MEAN CORPUSCULAR VOLUME 88 FL (80-99); MEAN PLATELET VOLUME 9.5 FL (7.4-10.4); MONOCYTES # (AUTO) 0.9 X 10^3 (0.0-1.0); MONOCYTES % (AUTO) 14 % (0-12); NEUTROPHILS # (AUTO) 3.6 X 10^3 (1.8-7.8); NEUTROPHILS % (AUTO) 54 % (42-75); PLATELET COUNT 255 10^3/uL (130-400); RED CELL DISTRIBUTION WIDTH 14.6 % (10.0-14.5); WHITE BLOOD COUNT 6.8 10^3/uL (4.3-11.0)
[2019-04-11 10:30] LABS: ALANINE AMINOTRANSFERASE 28 U/L (0-55); ALBUMIN 4.4 GM/DL (3.2-4.5); ALKALINE PHOSPHATASE 76 U/L (40-136); BILIRUBIN,TOTAL 0.5 MG/DL (0.1-1.0); BUN/CREATININE RATIO 17; CALCIUM 9.6 MG/DL (8.5-10.1); CARBON DIOXIDE 23 MMOL/L (21-32); CHLORIDE 107 MMOL/L (98-107); CREATININE SERUM 1.15 MG/DL (0.60-1.30); GFR ESTIMATED > 60; GLUCOSE 110 MG/DL (70-105); POTASSIUM 4.3 MMOL/L (3.6-5.0); SODIUM 139 MMOL/L (135-145); TOTAL PROTEIN 7.6 GM/DL (6.4-8.2)
== END 2019-04-13 11:59 | disposition home or self-care (01) ==
LOC: ONC 09:53
PROVIDERS: ATTEND Internal Medicine Hematology & Oncology
DX: Z51.11 Encounter for antineoplastic chemotherapy (principal); C82.18 Follicular lymphoma grade II, lymph nodes of multiple sites; M10.9 Gout, unspecified; J90 Pleural effusion, not elsewhere classified; K92.1 Melena; R06.02 Shortness of breath; R53.81 Other malaise; E66.9 Obesity, unspecified; Z68.38 Body mass index [BMI] 38.0-38.9, adult; Z85.46 Personal history of malignant neoplasm of prostate; Z87.891 Personal history of nicotine dependence; Z79.82 Long term (current) use of aspirin; Z79.899 Other long term (current) drug therapy
CPT/HCPCS: 36591; 80053; 83615; 85025; 96413; 96415; J9312

== ENCOUNTER → 2019-04-11 | Outpatient (CLI) | payer MEDICARE, OTHER ==
[~2019-04-11] MED LIST changes: -ACETAMINOPHEN 325 MG TAB (TYLENOL) CANCER CTR PO PRN; +BARIUM SUSPENSION 2.1% (VANILLA SILQ) 450 ML PO ONE; +CATHETER FLUSH 10 ML SYR IV PRN; +HOLD METFORMIN - RECEIVED CONTRAST 20 ML VIAL IV SCH; +IOHEXOL 350 MG/ML 100 ML (OMNIPAQUE 350) VIAL IV ONE; +NS 100 ML (IVPB) BAG IV ONE; -NS IV 500 ML (CANCER CENTER) 500 ML IV SCH; -diphenhydrAMINE 25 MG TAB (BENADRYL) CANCER CENTER PO SCH; -riTUXimab 500 MG, riTUXimab FOR IV INJ CONC 300 MG in NS (IVPB) CANCER CENTER 186 ML IV SCH
--- NOTE | 2019-04-11 12:55 | Diagnostic Imaging Report ---
PROCEDURE: CT chest with contrast, CT abdomen and pelvis with and without contrast. TECHNIQUE: Pre and post intravenous contrast axial imaging of the abdomen and pelvis and post contrast axial imaging of the chest were performed. Auto Exposure Controls were utilized during the CT exam to meet ALARA standards for radiation dose reduction. INDICATION: Non-Hodgkin's lymphoma. Comparison: 02/16/2018 and 03/31/2017. There is some mild bibasilar atelectasis. No edema or pneumonia. No pleural effusion or pneumothorax. Nodular areas within the atelectasis are unchanged since prior exam and may represent subpleural lymph nodes or persistent areas of unaerated lung. A 4 mm nodule right upper lobe is unchanged. Heart size is normal. No pericardial effusion. Aorta is normal in caliber. Some soft tissue stranding in the anterior mediastinum may represent scarring from prior lymphoma. Left subclavian port is present. No axillary, supraclavicular or mediastinal lymphadenopathy. There is an unchanged low-attenuation area adjacent to the falciform ligament which may represent some focal steatosis. Gallbladder is normal. No biliary ductal dilation. Portal vein is patent. Pancreas, spleen and adrenal glands are normal. Kidneys are normal. There is a cyst in the left kidney. No hydronephrosis. Urinary bladder is normal. Prostate is resected. No dilated loops of large or small bowel. There is some colonic diverticula without diverticulitis. No bowel obstruction or inflammation. Appendix is normal. There's been an increase in size of the retroperitoneal lymph nodes with a left periaortic lymph node measuring 17 mm. There is no mesenteric lymphadenopathy. The abdominal aorta is atherosclerotic without aneurysm. There are no suspicious osseous lesions. Impression: 1. Increase in size of left para-aortic lymph nodes now measuring up to 17 mm. 2. Stable mediastinal stranding in keeping with treated lymphoma. 3. Changes of hypoattenuating focus adjacent to falciform ligament which may represent focal steatosis. Dictated by: Dictated on workstation # [id number]
== END ==
LOC: RAD 10:15
PROVIDERS: ATTEND Internal Medicine Hematology & Oncology
DX: C82.90 Follicular lymphoma, unspecified, unspecified site (principal)
CPT/HCPCS: 71260; 74178

== ENCOUNTER 2019-07-11 08:38 | Outpatient (RCR) | payer MEDICARE, OTHER ==
[~2019-07-11 08:38] MED LIST changes: -ACETAMINOPHEN 325 MG TAB (TYLENOL) CANCER CTR PO PRN; -NS IV 500 ML (CANCER CENTER) 500 ML IV SCH; -diphenhydrAMINE 25 MG TAB (BENADRYL) CANCER CENTER PO SCH; -riTUXimab 500 MG, riTUXimab FOR IV INJ CONC 300 MG in NS (IVPB) CANCER CENTER 186 ML IV SCH
[2019-07-11 09:03] LABS: BASOPHILS % (AUTO) 0 % (0-10); EOSINOPHILS # (AUTO) 0.3 10^3/uL (0.0-0.3); EOSINOPHILS % (AUTO) 3 % (0-10); HEMATOCRIT 42 % (40-54); HEMOGLOBIN 14.4 G/DL (13.3-17.7); LYMPHOCYTES # (AUTO) 1.8 X 10^3 (1.0-4.0); LYMPHOCYTES % (AUTO) 23 % (12-44); MEAN CORPUSCULAR HEMOGLOBIN 30 PG (25-34); MEAN CORPUSCULAR HGB CONC 34 G/DL (32-36); MEAN CORPUSCULAR VOLUME 88 FL (80-99); MEAN PLATELET VOLUME 9.8 FL (7.4-10.4); MONOCYTES # (AUTO) 0.8 X 10^3 (0.0-1.0); MONOCYTES % (AUTO) 10 % (0-12); NEUTROPHILS # (AUTO) 5.1 X 10^3 (1.8-7.8); NEUTROPHILS % (AUTO) 64 % (42-75); PLATELET COUNT 245 10^3/uL (130-400); RED CELL DISTRIBUTION WIDTH 14.3 % (10.0-14.5); WHITE BLOOD COUNT 7.9 10^3/uL (4.3-11.0)
[2019-07-11 09:36] LABS: ALANINE AMINOTRANSFERASE 23 U/L (0-55); ALBUMIN 4.3 GM/DL (3.2-4.5); ALKALINE PHOSPHATASE 77 U/L (40-136); BILIRUBIN,TOTAL 0.5 MG/DL (0.1-1.0); BUN/CREATININE RATIO 15; CALCIUM 9.4 MG/DL (8.5-10.1); CARBON DIOXIDE 21 MMOL/L (21-32); CHLORIDE 107 MMOL/L (98-107); CREATININE SERUM 1.17 MG/DL (0.60-1.30); GFR ESTIMATED > 60; GLUCOSE 160 MG/DL (70-105); POTASSIUM 4.2 MMOL/L (3.6-5.0); SODIUM 140 MMOL/L (135-145); TOTAL PROTEIN 7.2 GM/DL (6.4-8.2)
== END 2019-07-16 | disposition home or self-care (01) ==
LOC: ONC 08:38
PROVIDERS: ATTEND Internal Medicine Hematology & Oncology
DX: C82.18 Follicular lymphoma grade II, lymph nodes of multiple sites (principal); M10.9 Gout, unspecified; J90 Pleural effusion, not elsewhere classified; K92.1 Melena; R06.02 Shortness of breath; R53.81 Other malaise; E66.9 Obesity, unspecified; Z68.38 Body mass index [BMI] 38.0-38.9, adult; Z85.46 Personal history of malignant neoplasm of prostate; Z87.891 Personal history of nicotine dependence; Z79.82 Long term (current) use of aspirin; Z79.899 Other long term (current) drug therapy
CPT/HCPCS: 36591; 80053; 83615; 85025; 99213

== ENCOUNTER 2019-10-03 09:24 | Outpatient (RCR) | payer MEDICARE, OTHER ==
[2019-10-03 09:55] LABS: BASOPHILS % (AUTO) 1 % (0-10); EOSINOPHILS # (AUTO) 0.3 10^3/uL (0.0-0.3); EOSINOPHILS % (AUTO) 4 % (0-10); HEMATOCRIT 41 % (40-54); HEMOGLOBIN 13.9 G/DL (13.3-17.7); LYMPHOCYTES # (AUTO) 1.9 X 10^3 (1.0-4.0); LYMPHOCYTES % (AUTO) 25 % (12-44); MEAN CORPUSCULAR HEMOGLOBIN 30 PG (25-34); MEAN CORPUSCULAR HGB CONC 34 G/DL (32-36); MEAN CORPUSCULAR VOLUME 88 FL (80-99); MEAN PLATELET VOLUME 9.7 FL (7.4-10.4); MONOCYTES # (AUTO) 0.7 X 10^3 (0.0-1.0); MONOCYTES % (AUTO) 10 % (0-12); NEUTROPHILS # (AUTO) 4.4 X 10^3 (1.8-7.8); NEUTROPHILS % (AUTO) 60 % (42-75); PLATELET COUNT 253 10^3/uL (130-400); RED CELL DISTRIBUTION WIDTH 14.8 % (10.0-14.5); WHITE BLOOD COUNT 7.3 10^3/uL (4.3-11.0)
[2019-10-03 10:18] LABS: ALANINE AMINOTRANSFERASE 26 U/L (0-55); ALBUMIN 4.1 GM/DL (3.2-4.5); ALKALINE PHOSPHATASE 71 U/L (40-136); BILIRUBIN,TOTAL 0.4 MG/DL (0.1-1.0); BUN/CREATININE RATIO 15; CALCIUM 9.4 MG/DL (8.5-10.1); CARBON DIOXIDE 21 MMOL/L (21-32); CHLORIDE 108 MMOL/L (98-107); CREATININE SERUM 1.07 MG/DL (0.60-1.30); GFR ESTIMATED > 60; GLUCOSE 175 MG/DL (70-105); SODIUM 139 MMOL/L (135-145); TOTAL PROTEIN 7.1 GM/DL (6.4-8.2)
== END 2020-01-01 | disposition home or self-care (01) ==
LOC: ONC 09:24
PROVIDERS: ATTEND Internal Medicine Hematology & Oncology
DX: C82.18 Follicular lymphoma grade II, lymph nodes of multiple sites (principal); M10.9 Gout, unspecified; J90 Pleural effusion, not elsewhere classified; K92.1 Melena; R06.02 Shortness of breath; R53.81 Other malaise; E66.9 Obesity, unspecified; Z68.38 Body mass index [BMI] 38.0-38.9, adult; Z85.46 Personal history of malignant neoplasm of prostate; Z87.891 Personal history of nicotine dependence; Z79.82 Long term (current) use of aspirin; Z79.899 Other long term (current) drug therapy
CPT/HCPCS: 36591; 80053; 83615; 85025

== ENCOUNTER → 2020-01-08 | Outpatient (CLI) | payer MEDICARE, OTHER ==
[~2020-01-08] MED LIST changes: +BARIUM SUSPENSION 2.1% (VANILLA SILQ) 450 ML PO ONE; +CATHETER FLUSH 10 ML SYR IV PRN; +HOLD METFORMIN - RECEIVED CONTRAST 20 ML VIAL IV SCH; +IOHEXOL 350 MG/ML 100 ML (OMNIPAQUE 350) VIAL IV ONE; +NS 100 ML (IVPB) BAG IV ONE
--- NOTE | 2020-01-08 09:19 | Diagnostic Imaging Report ---
EXAMINATION: CT Chest with intravenous contrast, CT Abdomen and Pelvis without and with intravenous contrast. TECHNIQUE: Pre and post intravenous contrast axial imaging of the abdomen and pelvis and post contrast axial imaging of the chest were performed. All CT scans use one or more of the following dose optimizing techniques: automated exposure control, MA and/or KvP adjustment based on a patient size and exam type, or iterative reconstruction. HISTORY: Lymphoma COMPARISON: February, FINDINGS: There is no edema or pneumonia. No pleural effusion. No pneumothorax. There is a stable 8 mm right lower lobe pulmonary nodule. Scattered areas of atelectasis are seen. Heart size is normal. There are mild coronary artery calcifications. No pericardial effusion. Aorta is normal in caliber. There is no axillary or supraclavicular lymphadenopathy. There is no mediastinal lymphadenopathy. There is unchanged mild stranding in the anterior mediastinum consistent with treated lymphoma. The liver is normal without focal lesion. There is no biliary ductal dilation. Gallbladder is normal. Pancreas is normal. Spleen is normal. Adrenal glands are normal. Stable cysts are seen in the left kidney. No suspicious renal lesions. There is no hydronephrosis. Urinary bladder is normal. Visualized bowel is normal in caliber without obstruction or inflammation. No free fluid or air. There is continued pancreas and retroperitoneal lymphadenopathy which is now very extensive. The previously described enlarging 17 mm periaortic lymph node now measures 30 mm. Additional lymph nodes measuring between 15 and 25 mm are also present. The adenopathy abuts the abdominal aorta. The lymphadenopathy is quite extensive and present throughout the retroperitoneum. There is no aneurysm of the abdominal aorta but it is tortuous and atherosclerotic. Prostate has been resected. There are no suspicious osseus lesions. IMPRESSION: 1. Continued increase in retroperitoneal lymphadenopathy which is now quite large and extensive consistent with recurrent lymphoma. Dictated by: Dictated on workstation # [id number]
== END ==
LOC: RAD 08:10
PROVIDERS: ATTEND Nurse Practitioner Adult Health
DX: C82.18 Follicular lymphoma grade II, lymph nodes of multiple sites (principal)
CPT/HCPCS: 71260; 74178

== ENCOUNTER 2020-03-21 10:54 | Outpatient (RCR) | payer MEDICARE, OTHER ==
[2020-01-02 13:08] LABS: BASOPHILS % (AUTO) 0 % (0-10); EOSINOPHILS # (AUTO) 0.3 10^3/uL (0.0-0.3); EOSINOPHILS % (AUTO) 3 % (0-10); HEMATOCRIT 40 % (40-54); HEMOGLOBIN 13.3 G/DL (13.3-17.7); LYMPHOCYTES # (AUTO) 2.7 X 10^3 (1.0-4.0); LYMPHOCYTES % (AUTO) 27 % (12-44); MEAN CORPUSCULAR HEMOGLOBIN 29 PG (25-34); MEAN CORPUSCULAR HGB CONC 33 G/DL (32-36); MEAN CORPUSCULAR VOLUME 87 FL (80-99); MEAN PLATELET VOLUME 9.4 FL (7.4-10.4); MONOCYTES % (AUTO) 10 % (0-12); NEUTROPHILS # (AUTO) 5.9 X 10^3 (1.8-7.8); NEUTROPHILS % (AUTO) 60 % (42-75); PLATELET COUNT 353 10^3/uL (130-400); RED CELL DISTRIBUTION WIDTH 14.6 % (10.0-14.5); WHITE BLOOD COUNT 9.9 10^3/uL (4.3-11.0)
[2020-01-02 13:27] LABS: ALANINE AMINOTRANSFERASE 19 U/L (0-55); ALBUMIN 4.3 GM/DL (3.2-4.5); ALKALINE PHOSPHATASE 95 U/L (40-136); BILIRUBIN,TOTAL 0.4 MG/DL (0.1-1.0); BUN/CREATININE RATIO 14; CALCIUM 10.1 MG/DL (8.5-10.1); CARBON DIOXIDE 20 MMOL/L (21-32); CHLORIDE 106 MMOL/L (98-107); GFR ESTIMATED > 60; GLUCOSE 125 MG/DL (70-105); POTASSIUM 4.2 MMOL/L (3.6-5.0); SODIUM 137 MMOL/L (135-145); TOTAL PROTEIN 7.6 GM/DL (6.4-8.2)
[2020-01-24 09:24] LABS: BASOPHILS % (AUTO) 1 % (0-10); EOSINOPHILS # (AUTO) 0.3 10^3/uL (0.0-0.3); EOSINOPHILS % (AUTO) 4 % (0-10); HEMATOCRIT 38 % (40-54); HEMOGLOBIN 12.7 G/DL (13.3-17.7); LYMPHOCYTES # (AUTO) 1.8 X 10^3 (1.0-4.0); LYMPHOCYTES % (AUTO) 23 % (12-44); MEAN CORPUSCULAR HEMOGLOBIN 29 PG (25-34); MEAN CORPUSCULAR HGB CONC 33 G/DL (32-36); MEAN CORPUSCULAR VOLUME 87 FL (80-99); MEAN PLATELET VOLUME 9.4 FL (7.4-10.4); MONOCYTES # (AUTO) 0.7 X 10^3 (0.0-1.0); MONOCYTES % (AUTO) 9 % (0-12); NEUTROPHILS # (AUTO) 4.9 X 10^3 (1.8-7.8); NEUTROPHILS % (AUTO) 63 % (42-75); PLATELET COUNT 327 10^3/uL (130-400); RED CELL DISTRIBUTION WIDTH 13.9 % (10.0-14.5); WHITE BLOOD COUNT 7.8 10^3/uL (4.3-11.0)
[2020-01-24 09:45] LABS: ALANINE AMINOTRANSFERASE 20 U/L (0-55); ALKALINE PHOSPHATASE 81 U/L (40-136); BILIRUBIN,TOTAL 0.4 MG/DL (0.1-1.0); BUN/CREATININE RATIO 18; CALCIUM 9.5 MG/DL (8.5-10.1); CARBON DIOXIDE 24 MMOL/L (21-32); CHLORIDE 107 MMOL/L (98-107); CREATININE SERUM 1.04 MG/DL (0.60-1.30); GFR ESTIMATED > 60; GLUCOSE 130 MG/DL (70-105); SODIUM 141 MMOL/L (135-145); TOTAL PROTEIN 7.5 GM/DL (6.4-8.2)
[2020-02-21 09:49] LABS: BASOPHILS % (AUTO) 1 % (0-10); EOSINOPHILS # (AUTO) 0.3 10^3/uL (0.0-0.3); EOSINOPHILS % (AUTO) 5 % (0-10); HEMATOCRIT 39 % (40-54); HEMOGLOBIN 13.1 G/DL (13.3-17.7); LYMPHOCYTES # (AUTO) 1.1 X 10^3 (1.0-4.0); LYMPHOCYTES % (AUTO) 21 % (12-44); MEAN CORPUSCULAR HEMOGLOBIN 29 PG (25-34); MEAN CORPUSCULAR HGB CONC 34 G/DL (32-36); MEAN CORPUSCULAR VOLUME 87 FL (80-99); MEAN PLATELET VOLUME 9.5 FL (7.4-10.4); MONOCYTES # (AUTO) 0.7 X 10^3 (0.0-1.0); MONOCYTES % (AUTO) 14 % (0-12); NEUTROPHILS # (AUTO) 3.1 X 10^3 (1.8-7.8); NEUTROPHILS % (AUTO) 59 % (42-75); PLATELET COUNT 228 10^3/uL (130-400); RED CELL DISTRIBUTION WIDTH 15.6 % (10.0-14.5); WHITE BLOOD COUNT 5.2 10^3/uL (4.3-11.0)
[2020-02-21 10:09] LABS: ALANINE AMINOTRANSFERASE 24 U/L (0-55); ALKALINE PHOSPHATASE 74 U/L (40-136); BILIRUBIN,TOTAL 0.4 MG/DL (0.1-1.0); BUN/CREATININE RATIO 12; CALCIUM 9.3 MG/DL (8.5-10.1); CARBON DIOXIDE 20 MMOL/L (21-32); CHLORIDE 111 MMOL/L (98-107); GFR ESTIMATED > 60; GLUCOSE 143 MG/DL (70-105); SODIUM 143 MMOL/L (135-145); TOTAL PROTEIN 6.9 GM/DL (6.4-8.2)
[2020-03-20 09:13] LABS: BASOPHILS % (AUTO) 0 % (0-10); EOSINOPHILS # (AUTO) 0.3 10^3/uL (0.0-0.3); EOSINOPHILS % (AUTO) 4 % (0-10); HEMATOCRIT 39 % (40-54); HEMOGLOBIN 13.3 G/DL (13.3-17.7); LYMPHOCYTES # (AUTO) 1.5 X 10^3 (1.0-4.0); LYMPHOCYTES % (AUTO) 21 % (12-44); MEAN CORPUSCULAR HEMOGLOBIN 29 PG (25-34); MEAN CORPUSCULAR HGB CONC 34 G/DL (32-36); MEAN CORPUSCULAR VOLUME 86 FL (80-99); MEAN PLATELET VOLUME 9.2 FL (7.4-10.4); MONOCYTES # (AUTO) 1.1 X 10^3 (0.0-1.0); MONOCYTES % (AUTO) 15 % (0-12); NEUTROPHILS # (AUTO) 4.2 X 10^3 (1.8-7.8); NEUTROPHILS % (AUTO) 60 % (42-75); PLATELET COUNT 264 10^3/uL (130-400); RED CELL DISTRIBUTION WIDTH 15.3 % (10.0-14.5)
[2020-03-20 09:38] LABS: ALANINE AMINOTRANSFERASE 27 U/L (0-55); ALBUMIN 4.2 GM/DL (3.2-4.5); ALKALINE PHOSPHATASE 76 U/L (40-136); BILIRUBIN,TOTAL 0.5 MG/DL (0.1-1.0); BUN/CREATININE RATIO 14; CALCIUM 9.5 MG/DL (8.5-10.1); CARBON DIOXIDE 22 MMOL/L (21-32); CHLORIDE 109 MMOL/L (98-107); CREATININE SERUM 1.09 MG/DL (0.60-1.30); GFR ESTIMATED > 60; GLUCOSE 130 MG/DL (70-105); POTASSIUM 3.9 MMOL/L (3.6-5.0); SODIUM 141 MMOL/L (135-145)
[~2020-03-21] VITALS: Ht 171.4 cm; Wt 114.3 kg
[~2020-03-21 10:54] MED LIST changes: +ACETAMINOPHEN 325 MG TAB (TYLENOL) CANCER CTR PO PRN; -BARIUM SUSPENSION 2.1% (VANILLA SILQ) 450 ML PO ONE; +BENDAMUSTINE HCL 180 MG in NS (IVPB) CANCER CENTER 50 ML IV SCH; -CATHETER FLUSH 10 ML SYR IV PRN; -HOLD METFORMIN - RECEIVED CONTRAST 20 ML VIAL IV SCH; -IOHEXOL 350 MG/ML 100 ML (OMNIPAQUE 350) VIAL IV ONE; +NS (IVPB) CANCER CENTER 250 ML ONE; -NS 100 ML (IVPB) BAG IV ONE; +NS IV 1000 ML (CANCER CTR) IV SCH; +RITUXIMAB-ABBS 500 MG, RITUXIMAB-ABBS 300 MG in NS (IVPB) CANCER CENTER 186 ML IV SCH; +diphenhydrAMINE 25 MG TAB (BENADRYL) CANCER CENTER PO SCH; +riTUXimab 500 MG, riTUXimab FOR IV INJ CONC 300 MG in NS (IVPB) CANCER CENTER 186 ML IV SCH
== END 2020-04-01 | disposition home or self-care (01) ==
LOC: ONC 10:54
PROVIDERS: ATTEND Internal Medicine Hematology & Oncology
DX: Z51.11 Encounter for antineoplastic chemotherapy (principal); C82.18 Follicular lymphoma grade II, lymph nodes of multiple sites; M10.9 Gout, unspecified; J90 Pleural effusion, not elsewhere classified; K92.1 Melena; R06.02 Shortness of breath; R53.81 Other malaise; E66.9 Obesity, unspecified; Z68.38 Body mass index [BMI] 38.0-38.9, adult; Z85.46 Personal history of malignant neoplasm of prostate; Z87.891 Personal history of nicotine dependence; Z79.82 Long term (current) use of aspirin; Z79.899 Other long term (current) drug therapy
CPT/HCPCS: 80053; 83615; 85025; G0463; 36591; 96375; 96409; 96411; 96413; 96415; J9312

== ENCOUNTER → 2020-04-15 | Outpatient (CLI) | payer MEDICARE, OTHER ==
[~2020-04-15] MED LIST changes: -ACETAMINOPHEN 325 MG TAB (TYLENOL) CANCER CTR PO PRN; +BARIUM SUSPENSION 2.1% (VANILLA SILQ) 450 ML PO ONE; -BENDAMUSTINE HCL 180 MG in NS (IVPB) CANCER CENTER 50 ML IV SCH; +CATHETER FLUSH 10 ML SYR IV PRN; +HOLD METFORMIN - RECEIVED CONTRAST 20 ML VIAL IV SCH; +IOHEXOL 350 MG/ML 100 ML (OMNIPAQUE 350) VIAL IV ONE; -NS (IVPB) CANCER CENTER 250 ML ONE; +NS 100 ML (IVPB) BAG IV ONE; -NS IV 1000 ML (CANCER CTR) IV SCH; -RITUXIMAB-ABBS 500 MG, RITUXIMAB-ABBS 300 MG in NS (IVPB) CANCER CENTER 186 ML IV SCH; -diphenhydrAMINE 25 MG TAB (BENADRYL) CANCER CENTER PO SCH; -riTUXimab 500 MG, riTUXimab FOR IV INJ CONC 300 MG in NS (IVPB) CANCER CENTER 186 ML IV SCH
--- NOTE | 2020-04-15 10:51 | Diagnostic Imaging Report ---
PROCEDURE: CT chest with contrast, CT abdomen and pelvis with and without contrast. TECHNIQUE: Pre and post intravenous contrast axial imaging of the abdomen and pelvis and post contrast axial imaging of the chest were performed. Auto Exposure Controls were utilized during the CT exam to meet ALARA standards for radiation dose reduction. INDICATION: Lymphoma and prostate carcinoma, followup. COMPARISON: Correlation is made with the prior CT from 01/08/2020. FINDINGS: CT CHEST: A left chest wall port is noted with the tip near the junction of the left innominate vein and SVC. No axillary lymphadenopathy is identified. No definite mediastinal or hilar lymphadenopathy is detected. No pericardial or pleural fluid is identified. The nodular densities in the posterior aspects of the bilateral lower lobes appear stable. No new parenchymal abnormality is detected. IMPRESSION: Stable CT chest since the exam from 01/08/2020. No thoracic lymphadenopathy is detected. CT ABDOMEN AND PELVIS: An area of low density in the left lobe of the liver appears similar to the prior exam. No other liver abnormality is detected. The gallbladder is unremarkable. There is no biliary ductal dilatation. The pancreas and spleen are unremarkable. No adrenal mass is detected. The kidneys contain cortical low densities, likely cysts. The aorta is calcified but nonaneurysmal. The previously noted central retroperitoneal lymphadenopathy has significantly improved. The large manuela masses in the left periaortic region are significantly decreased in size. The largest node is approximately 2.4 x 1.7 cm compared with nearly 4 cm on the prior study. No definite iliac, obturator, or inguinal lymphadenopathy is detected. There are numerous surgical clips in the pelvis. The bladder is unremarkable. The prostate appears to be surgically absent. There is diverticulosis of the sigmoid colon but no evidence of acute diverticulitis. The bowel loops are of normal caliber. No obstruction is seen. There is no free fluid or fluid collection identified. The bony structures are unremarkable. IMPRESSION: 1. Significantly improved appearance of the abdomen and pelvis since the prior exam from 3 months earlier. The retroperitoneal lymphadenopathy has markedly decreased. No mesenteric or pelvic lymphadenopathy is seen on today's study. 2. Uncomplicated diverticulosis. Dictated by: Dictated on workstation # [id number]
== END ==
LOC: RAD 09:20
PROVIDERS: ATTEND Internal Medicine Hematology & Oncology
DX: K57.30 Diverticulosis of large intestine without perforation or abscess without bleeding (principal); C82.90 Follicular lymphoma, unspecified, unspecified site; R59.9 Enlarged lymph nodes, unspecified
CPT/HCPCS: 71260; 74178

== ENCOUNTER → 2020-07-04 | Outpatient (CLI) | payer MEDICARE, OTHER ==
[~2020-07-04] MED LIST changes: +ASPI-1238 PO; -ASPI-983 PO; -BARIUM SUSPENSION 2.1% (VANILLA SILQ) 450 ML PO ONE; -CATHETER FLUSH 10 ML SYR IV PRN
--- NOTE | 2020-07-04 10:37 | Diagnostic Imaging Report ---
PROCEDURE: CT chest with contrast, CT abdomen and pelvis with and without contrast. TECHNIQUE: Pre and post intravenous contrast axial imaging of the abdomen and pelvis and post contrast axial imaging of the chest were performed. Auto Exposure Controls were utilized during the CT exam to meet ALARA standards for radiation dose reduction. INDICATION: Non-Hodgkin's lymphoma, follow-up. COMPARISON: Correlation is made with prior CT from 04/15/2020. FINDINGS: CT chest: The left chest wall port remains in place. Tip appears to be within the junction of the innominate vein and SVC. No axillary lymphadenopathy is identified. No mediastinal or hilar lymphadenopathy is identified. There are coronary arterial calcifications. There is no pericardial or pleural fluid detected. Pulmonary parenchymal evaluation does show some mild interstitial changes, likely scarring. No infiltrate or mass is detected. IMPRESSION: Continued stable CT chest since 04/15/2020. No thoracic lymphadenopathy is detected. CT abdomen and pelvis: Low-density lesion in left lobe of liver appears to be stable since prior exam. No new liver mass is detected. The gallbladder is unremarkable. No biliary ductal dilatation is seen. The pancreas and spleen are unremarkable. No adrenal mass is detected. Lower pole left renal cyst is stable. Aorta is non-aneurysmal. There continues to be improvement in central retroperitoneal lymphadenopathy. Marker left para-aortic lymph node now measures 2.1 x 1.4 cm compared with 2.4 x 1.7 cm. Additional lymph nodes in the central retroperitoneum show decrease in size as well. No definite iliac or inguinal lymphadenopathy is identified. Multiple surgical clips in the pelvis are again seen. Bladder is decompressed. Prostate is surgically absent. Bowel loops are normal caliber. There is diverticulosis of the sigmoid but no evidence of acute diverticulitis. There is no ascites. The bony structures are nonacute. IMPRESSION: 1. Continued improvement in central retroperitoneal lymphadenopathy when compared with exam from 04/15/2020. No new lymphadenopathy is detected. 2. Status post prostatectomy. 3. Uncomplicated diverticulosis. Dictated by: Dictated on workstation # [id number]
== END ==
LOC: RAD 09:45
PROVIDERS: ATTEND Internal Medicine Hematology & Oncology
DX: C82.18 Follicular lymphoma grade II, lymph nodes of multiple sites (principal); K57.30 Diverticulosis of large intestine without perforation or abscess without bleeding; Z90.79 Acquired absence of other genital organ(s)
CPT/HCPCS: 71260; 74178

== ENCOUNTER 2020-07-08 13:17 | Outpatient (RCR) | payer MEDICARE, OTHER ==
[2020-04-17 09:01] LABS: BASOPHILS % (AUTO) 0 % (0-10); EOSINOPHILS # (AUTO) 0.2 10^3/uL (0.0-0.3); EOSINOPHILS % (AUTO) 4 % (0-10); HEMATOCRIT 37 % (40-54); HEMOGLOBIN 12.7 G/DL (13.3-17.7); LYMPHOCYTES # (AUTO) 1.4 X 10^3 (1.0-4.0); LYMPHOCYTES % (AUTO) 25 % (12-44); MEAN CORPUSCULAR HEMOGLOBIN 30 PG (25-34); MEAN CORPUSCULAR HGB CONC 34 G/DL (32-36); MEAN CORPUSCULAR VOLUME 88 FL (80-99); MEAN PLATELET VOLUME 9.2 FL (7.4-10.4); MONOCYTES # (AUTO) 0.7 X 10^3 (0.0-1.0); MONOCYTES % (AUTO) 14 % (0-12); NEUTROPHILS % (AUTO) 57 % (42-75); PLATELET COUNT 239 10^3/uL (130-400); WHITE BLOOD COUNT 5.4 10^3/uL (4.3-11.0)
[2020-04-17 09:19] LABS: ALANINE AMINOTRANSFERASE 25 U/L (0-55); ALKALINE PHOSPHATASE 69 U/L (40-136); BILIRUBIN,TOTAL 0.4 MG/DL (0.1-1.0); BUN/CREATININE RATIO 15; CALCIUM 9.3 MG/DL (8.5-10.1); CARBON DIOXIDE 21 MMOL/L (21-32); CHLORIDE 107 MMOL/L (98-107); CREATININE SERUM 1.07 MG/DL (0.60-1.30); GFR ESTIMATED > 60; GLUCOSE 227 MG/DL (70-105); POTASSIUM 3.9 MMOL/L (3.6-5.0); SODIUM 139 MMOL/L (135-145); TOTAL PROTEIN 6.6 GM/DL (6.4-8.2)
[2020-05-15 09:32] LABS: BASOPHILS # (AUTO) 0.1 10^3/uL (0.0-0.1); BASOPHILS % (AUTO) 1 % (0-10); EOSINOPHILS # (AUTO) 0.2 10^3/uL (0.0-0.3); EOSINOPHILS % (AUTO) 5 % (0-10); HEMATOCRIT 37 % (40-54); HEMOGLOBIN 12.8 g/dL (13.3-17.7); LYMPHOCYTES # (AUTO) 1.4 10^3/uL (1.0-4.0); LYMPHOCYTES % (AUTO) 28 % (12-44); MEAN CORPUSCULAR HEMOGLOBIN 31 pg (25-34); MEAN CORPUSCULAR HGB CONC 34 g/dL (32-36); MEAN CORPUSCULAR VOLUME 90 fL (80-99); MEAN PLATELET VOLUME 9.4 fL (9.0-12.2); MONOCYTES # (AUTO) 0.7 10^3/uL (0.0-1.0); MONOCYTES % (AUTO) 13 % (0-12); NEUTROPHILS # (AUTO) 2.7 10^3/uL (1.8-7.8); NEUTROPHILS % (AUTO) 53 % (42-75); PLATELET COUNT 201 10^3/uL (130-400); WHITE BLOOD COUNT 5.1 10^3/uL (4.3-11.0)
[2020-05-15 09:52] LABS: ALANINE AMINOTRANSFERASE 26 U/L (0-55); ALKALINE PHOSPHATASE 69 U/L (40-136); BILIRUBIN,TOTAL 0.4 MG/DL (0.1-1.0); BUN/CREATININE RATIO 13; CALCIUM 9.2 MG/DL (8.5-10.1); CARBON DIOXIDE 20 MMOL/L (21-32); CHLORIDE 108 MMOL/L (98-107); CREATININE SERUM 1.02 MG/DL (0.60-1.30); GFR ESTIMATED > 60; GLUCOSE 168 MG/DL (70-105); POTASSIUM 3.8 MMOL/L (3.6-5.0); SODIUM 140 MMOL/L (135-145); TOTAL PROTEIN 6.7 GM/DL (6.4-8.2)
[2020-06-12 12:58] LABS: BASOPHILS % (AUTO) 1 % (0-10); EOSINOPHILS # (AUTO) 0.3 10^3/uL (0.0-0.3); EOSINOPHILS % (AUTO) 5 % (0-10); HEMATOCRIT 37 % (40-54); HEMOGLOBIN 12.9 g/dL (13.3-17.7); LYMPHOCYTES # (AUTO) 1.4 10^3/uL (1.0-4.0); LYMPHOCYTES % (AUTO) 23 % (12-44); MEAN CORPUSCULAR HEMOGLOBIN 31 pg (25-34); MEAN CORPUSCULAR HGB CONC 35 g/dL (32-36); MEAN CORPUSCULAR VOLUME 89 fL (80-99); MEAN PLATELET VOLUME 9.1 fL (9.0-12.2); MONOCYTES # (AUTO) 0.9 10^3/uL (0.0-1.0); MONOCYTES % (AUTO) 14 % (0-12); NEUTROPHILS # (AUTO) 3.3 10^3/uL (1.8-7.8); NEUTROPHILS % (AUTO) 56 % (42-75); PLATELET COUNT 233 10^3/uL (130-400); WHITE BLOOD COUNT 5.9 10^3/uL (4.3-11.0)
[2020-06-12 13:21] LABS: ALANINE AMINOTRANSFERASE 22 U/L (0-55); ALBUMIN 4.2 GM/DL (3.2-4.5); ALKALINE PHOSPHATASE 72 U/L (40-136); BILIRUBIN,TOTAL 0.4 MG/DL (0.1-1.0); BUN/CREATININE RATIO 14; CALCIUM 9.5 MG/DL (8.5-10.1); CARBON DIOXIDE 22 MMOL/L (21-32); CHLORIDE 106 MMOL/L (98-107); CREATININE SERUM 1.03 MG/DL (0.60-1.30); GFR ESTIMATED > 60; GLUCOSE 130 MG/DL (70-105); POTASSIUM 3.7 MMOL/L (3.6-5.0); SODIUM 140 MMOL/L (135-145); TOTAL PROTEIN 7.1 GM/DL (6.4-8.2)
[~2020-07-08 13:17] MED LIST changes: +ACETAMINOPHEN 325 MG TAB (TYLENOL) CANCER CTR PO PRN; +BENDAMUSTINE HCL 180 MG in NS (IVPB) CANCER CENTER 50 ML IV SCH; -HOLD METFORMIN - RECEIVED CONTRAST 20 ML VIAL IV SCH; -IOHEXOL 350 MG/ML 100 ML (OMNIPAQUE 350) VIAL IV ONE; -NS 100 ML (IVPB) BAG IV ONE; +NS IV 1000 ML (CANCER CTR) IV SCH; +RITUXIMAB-ABBS 500 MG, RITUXIMAB-ABBS 300 MG in NS (IVPB) CANCER CENTER 186 ML IV SCH; +diphenhydrAMINE 25 MG TAB (BENADRYL) CANCER CENTER PO SCH
== END 2020-07-16 | disposition home or self-care (01) ==
LOC: ONC 13:17
PROVIDERS: ATTEND Internal Medicine Hematology & Oncology
DX: Z51.11 Encounter for antineoplastic chemotherapy (principal); C82.18 Follicular lymphoma grade II, lymph nodes of multiple sites; M10.9 Gout, unspecified; J90 Pleural effusion, not elsewhere classified; K92.1 Melena; E66.9 Obesity, unspecified; R53.81 Other malaise; R59.9 Enlarged lymph nodes, unspecified; Z68.38 Body mass index [BMI] 38.0-38.9, adult; Z85.46 Personal history of malignant neoplasm of prostate; Z87.891 Personal history of nicotine dependence; Z79.82 Long term (current) use of aspirin; Z79.899 Other long term (current) drug therapy; Z92.21 Personal history of antineoplastic chemotherapy
CPT/HCPCS: 80053; 83615; 85025; 96375; 96411; 96413; G0463; 36591; 96409; 99213

== ENCOUNTER 2020-08-07 10:23 | Outpatient (RCR) | payer MEDICARE, OTHER ==
[2020-08-07 10:57] LABS: BASOPHILS # (AUTO) 0.1 10^3/uL (0.0-0.1); BASOPHILS % (AUTO) 1 % (0-10); EOSINOPHILS # (AUTO) 0.2 10^3/uL (0.0-0.3); EOSINOPHILS % (AUTO) 4 % (0-10); HEMATOCRIT 39 % (40-54); HEMOGLOBIN 13.1 g/dL (13.3-17.7); LYMPHOCYTES # (AUTO) 1.2 10^3/uL (1.0-4.0); LYMPHOCYTES % (AUTO) 22 % (12-44); MEAN CORPUSCULAR HEMOGLOBIN 30 pg (25-34); MEAN CORPUSCULAR HGB CONC 34 g/dL (32-36); MEAN CORPUSCULAR VOLUME 90 fL (80-99); MEAN PLATELET VOLUME 9.6 fL (9.0-12.2); MONOCYTES # (AUTO) 0.9 10^3/uL (0.0-1.0); MONOCYTES % (AUTO) 16 % (0-12); NEUTROPHILS # (AUTO) 3.1 10^3/uL (1.8-7.8); NEUTROPHILS % (AUTO) 56 % (42-75); PLATELET COUNT 282 10^3/uL (130-400); WHITE BLOOD COUNT 5.5 10^3/uL (4.3-11.0)
[2020-08-07 11:06] LABS: ALANINE AMINOTRANSFERASE 22 U/L (0-55); ALBUMIN 4.2 GM/DL (3.2-4.5); ALKALINE PHOSPHATASE 73 U/L (40-136); BILIRUBIN,TOTAL 0.5 MG/DL (0.1-1.0); BUN/CREATININE RATIO 14; CALCIUM 9.6 MG/DL (8.5-10.1); CARBON DIOXIDE 23 MMOL/L (21-32); CHLORIDE 106 MMOL/L (98-107); CREATININE SERUM 1.12 MG/DL (0.60-1.30); GFR ESTIMATED > 60; GLUCOSE 95 MG/DL (70-105); SODIUM 139 MMOL/L (135-145); TOTAL PROTEIN 7.2 GM/DL (6.4-8.2)
== END 2020-09-25 14:03 | disposition home or self-care (01) ==
LOC: ONC 10:23
PROVIDERS: ATTEND Internal Medicine Hematology & Oncology
DX: Z51.11 Encounter for antineoplastic chemotherapy (principal); C82.13 Follicular lymphoma grade II, intra-abdominal lymph nodes; M10.9 Gout, unspecified; J90 Pleural effusion, not elsewhere classified; K92.1 Melena; E66.9 Obesity, unspecified; R53.81 Other malaise; R59.9 Enlarged lymph nodes, unspecified; Z68.38 Body mass index [BMI] 38.0-38.9, adult; Z85.46 Personal history of malignant neoplasm of prostate; Z87.891 Personal history of nicotine dependence; Z79.82 Long term (current) use of aspirin; Z79.899 Other long term (current) drug therapy; Z92.21 Personal history of antineoplastic chemotherapy
CPT/HCPCS: 80053; 83615; 85025; 96413; G0463; 36591

== ENCOUNTER → 2020-08-21 | Outpatient (CLI) | payer OTHER, MEDICARE ==
[~2020-08-21] MED LIST changes: -ACETAMINOPHEN 325 MG TAB (TYLENOL) CANCER CTR PO PRN; -BENDAMUSTINE HCL 180 MG in NS (IVPB) CANCER CENTER 50 ML IV SCH; -NS IV 1000 ML (CANCER CTR) IV SCH; -RITUXIMAB-ABBS 500 MG, RITUXIMAB-ABBS 300 MG in NS (IVPB) CANCER CENTER 186 ML IV SCH; -diphenhydrAMINE 25 MG TAB (BENADRYL) CANCER CENTER PO SCH
== END ==
LOC: GIR 11:51
PROVIDERS: ATTEND Nurse Practitioner Family
DX: Z20.828 Contact with and (suspected) exposure to other viral communicable diseases (principal)
CPT/HCPCS: 87635

== ENCOUNTER 2020-12-03 09:11 | Outpatient (RCR) | payer MEDICARE, OTHER ==
[2020-10-08 11:20] LABS: BASOPHILS # (AUTO) 0.1 10^3/uL (0.0-0.1); BASOPHILS % (AUTO) 1 % (0-10); EOSINOPHILS # (AUTO) 0.3 10^3/uL (0.0-0.3); EOSINOPHILS % (AUTO) 4 % (0-10); HEMATOCRIT 43 % (40-54); HEMOGLOBIN 14.3 g/dL (13.3-17.7); LYMPHOCYTES # (AUTO) 1.5 10^3/uL (1.0-4.0); LYMPHOCYTES % (AUTO) 24 % (12-44); MEAN CORPUSCULAR HEMOGLOBIN 30 pg (25-34); MEAN CORPUSCULAR HGB CONC 33 g/dL (32-36); MEAN CORPUSCULAR VOLUME 89 fL (80-99); MEAN PLATELET VOLUME 9.9 fL (9.0-12.2); MONOCYTES % (AUTO) 16 % (0-12); NEUTROPHILS # (AUTO) 3.4 10^3/uL (1.8-7.8); NEUTROPHILS % (AUTO) 54 % (42-75); PLATELET COUNT 266 10^3/uL (130-400); WHITE BLOOD COUNT 6.2 10^3/uL (4.3-11.0)
[2020-10-08 11:33] LABS: ALANINE AMINOTRANSFERASE 24 U/L (0-55); ALBUMIN 4.3 GM/DL (3.2-4.5); ALKALINE PHOSPHATASE 77 U/L (40-136); BILIRUBIN,TOTAL 0.4 MG/DL (0.1-1.0); BUN/CREATININE RATIO 14; CALCIUM 9.6 MG/DL (8.5-10.1); CARBON DIOXIDE 18 MMOL/L (21-32); CHLORIDE 110 MMOL/L (98-107); CREATININE SERUM 1.02 MG/DL (0.60-1.30); GFR ESTIMATED > 60; GLUCOSE 112 MG/DL (70-105); POTASSIUM 4.2 MMOL/L (3.6-5.0); SODIUM 139 MMOL/L (135-145); TOTAL PROTEIN 7.5 GM/DL (6.4-8.2)
[~2020-12-03 09:11] MED LIST changes: +ACETAMINOPHEN 325 MG TAB (TYLENOL) CANCER CTR PO PRN; +NS IV 1000 ML (CANCER CTR) IV SCH; +RITUXIMAB-ABBS 500 MG, RITUXIMAB-ABBS 300 MG in NS (IVPB) CANCER CENTER 186 ML IV SCH; +diphenhydrAMINE 25 MG TAB (BENADRYL) CANCER CENTER PO SCH
[2020-12-03 09:53] LABS: BASOPHILS % (AUTO) 1 % (0-10); EOSINOPHILS # (AUTO) 0.2 10^3/uL (0.0-0.3); EOSINOPHILS % (AUTO) 3 % (0-10); HEMATOCRIT 43 % (40-54); HEMOGLOBIN 14.3 g/dL (13.3-17.7); LYMPHOCYTES % (AUTO) 17 % (12-44); MEAN CORPUSCULAR HEMOGLOBIN 30 pg (25-34); MEAN CORPUSCULAR HGB CONC 33 g/dL (32-36); MEAN CORPUSCULAR VOLUME 89 fL (80-99); MEAN PLATELET VOLUME 9.4 fL (9.0-12.2); MONOCYTES # (AUTO) 0.7 10^3/uL (0.0-1.0); MONOCYTES % (AUTO) 12 % (0-12); NEUTROPHILS # (AUTO) 3.8 10^3/uL (1.8-7.8); NEUTROPHILS % (AUTO) 67 % (42-75); PLATELET COUNT 259 10^3/uL (130-400); WHITE BLOOD COUNT 5.7 10^3/uL (4.3-11.0)
[2020-12-03 10:14] LABS: ALANINE AMINOTRANSFERASE 25 U/L (0-55); ALBUMIN 4.1 GM/DL (3.2-4.5); ALKALINE PHOSPHATASE 74 U/L (40-136); BILIRUBIN,TOTAL 0.4 MG/DL (0.1-1.0); BUN/CREATININE RATIO 13; CALCIUM 9.4 MG/DL (8.5-10.1); CARBON DIOXIDE 21 MMOL/L (21-32); CHLORIDE 111 MMOL/L (98-107); CREATININE SERUM 1.11 MG/DL (0.60-1.30); GFR ESTIMATED > 60; GLUCOSE 149 MG/DL (70-105); SODIUM 143 MMOL/L (135-145); TOTAL PROTEIN 7.1 GM/DL (6.4-8.2)
== END 2021-01-06 | disposition home or self-care (01) ==
LOC: ONC 09:11
PROVIDERS: ATTEND Internal Medicine Hematology & Oncology
DX: Z51.11 Encounter for antineoplastic chemotherapy (principal); C82.13 Follicular lymphoma grade II, intra-abdominal lymph nodes; M10.9 Gout, unspecified; J90 Pleural effusion, not elsewhere classified; K92.1 Melena; E66.9 Obesity, unspecified; R53.81 Other malaise; R59.9 Enlarged lymph nodes, unspecified; Z68.38 Body mass index [BMI] 38.0-38.9, adult; Z85.46 Personal history of malignant neoplasm of prostate; Z87.891 Personal history of nicotine dependence; Z79.82 Long term (current) use of aspirin; Z79.899 Other long term (current) drug therapy; Z92.21 Personal history of antineoplastic chemotherapy
CPT/HCPCS: 80053; 83615; 85025; 96413; G0463; 36415; 36591

== ENCOUNTER 2021-03-25 09:23 | Outpatient (RCR) | payer MEDICARE, OTHER ==
[2021-01-28 09:40] LABS: BASOPHILS # (AUTO) 0.1 10^3/uL (0.0-0.1); BASOPHILS % (AUTO) 1 % (0-10); EOSINOPHILS # (AUTO) 0.2 10^3/uL (0.0-0.3); EOSINOPHILS % (AUTO) 4 % (0-10); HEMATOCRIT 41 % (40-54); HEMOGLOBIN 13.8 g/dL (13.3-17.7); LYMPHOCYTES # (AUTO) 1.2 10^3/uL (1.0-4.0); LYMPHOCYTES % (AUTO) 22 % (12-44); MEAN CORPUSCULAR HEMOGLOBIN 30 pg (25-34); MEAN CORPUSCULAR HGB CONC 34 g/dL (32-36); MEAN CORPUSCULAR VOLUME 90 fL (80-99); MEAN PLATELET VOLUME 9.8 fL (9.0-12.2); MONOCYTES # (AUTO) 0.6 10^3/uL (0.0-1.0); MONOCYTES % (AUTO) 11 % (0-12); NEUTROPHILS # (AUTO) 3.3 10^3/uL (1.8-7.8); NEUTROPHILS % (AUTO) 61 % (42-75); PLATELET COUNT 235 10^3/uL (130-400); WHITE BLOOD COUNT 5.4 10^3/uL (4.3-11.0)
[2021-01-28 10:00] LABS: ALANINE AMINOTRANSFERASE 24 U/L (0-55); ALKALINE PHOSPHATASE 72 U/L (40-136); BILIRUBIN,TOTAL 0.4 MG/DL (0.1-1.0); BUN/CREATININE RATIO 11; CALCIUM 9.3 MG/DL (8.5-10.1); CARBON DIOXIDE 22 MMOL/L (21-32); CHLORIDE 108 MMOL/L (98-107); CREATININE SERUM 1.07 MG/DL (0.60-1.30); GFR ESTIMATED > 60; GLUCOSE 170 MG/DL (70-105); SODIUM 140 MMOL/L (135-145); TOTAL PROTEIN 6.8 GM/DL (6.4-8.2)
[2021-03-25 09:58] LABS: BASOPHILS % (AUTO) 1 % (0-10); EOSINOPHILS # (AUTO) 0.3 10^3/uL (0.0-0.3); EOSINOPHILS % (AUTO) 4 % (0-10); HEMATOCRIT 42 % (40-54); HEMOGLOBIN 13.9 g/dL (13.3-17.7); LYMPHOCYTES # (AUTO) 1.1 10^3/uL (1.0-4.0); LYMPHOCYTES % (AUTO) 17 % (12-44); MEAN CORPUSCULAR HEMOGLOBIN 30 pg (25-34); MEAN CORPUSCULAR HGB CONC 34 g/dL (32-36); MEAN CORPUSCULAR VOLUME 89 fL (80-99); MEAN PLATELET VOLUME 9.8 fL (9.0-12.2); MONOCYTES # (AUTO) 0.8 10^3/uL (0.0-1.0); MONOCYTES % (AUTO) 13 % (0-12); NEUTROPHILS # (AUTO) 4.2 10^3/uL (1.8-7.8); NEUTROPHILS % (AUTO) 65 % (42-75); PLATELET COUNT 233 10^3/uL (130-400); WHITE BLOOD COUNT 6.4 10^3/uL (4.3-11.0)
[2021-03-25 10:21] LABS: ALBUMIN 4.1 GM/DL (3.2-4.5); BILIRUBIN,TOTAL 0.6 MG/DL (0.1-1.0); CALCIUM 9.4 MG/DL (8.5-10.1); CREATININE SERUM 1.2 MG/DL (0.60-1.30); POTASSIUM 3.9 MMOL/L (3.6-5.0); TOTAL PROTEIN 7.4 GM/DL (6.4-8.2)
== END 2021-04-28 | disposition home or self-care (01) ==
LOC: ONC 09:23
PROVIDERS: ATTEND Internal Medicine Hematology & Oncology
DX: Z51.11 Encounter for antineoplastic chemotherapy (principal); Z45.2 Encounter for adjustment and management of vascular access device; C82.13 Follicular lymphoma grade II, intra-abdominal lymph nodes; J90 Pleural effusion, not elsewhere classified; K92.1 Melena; E66.9 Obesity, unspecified; R59.9 Enlarged lymph nodes, unspecified; Z68.38 Body mass index [BMI] 38.0-38.9, adult; Z85.46 Personal history of malignant neoplasm of prostate; Z87.891 Personal history of nicotine dependence; Z79.82 Long term (current) use of aspirin; Z79.899 Other long term (current) drug therapy; Z92.21 Personal history of antineoplastic chemotherapy
CPT/HCPCS: 80053; 83615; 85025; 96413; G0463; 36591

== ENCOUNTER → 2021-05-27 | Outpatient (CLI) | payer MEDICARE, OTHER ==
[~2021-05-27] MED LIST changes: -ACETAMINOPHEN 325 MG TAB (TYLENOL) CANCER CTR PO PRN; +BARIUM SUSPENSION 2.1% (VANILLA SILQ) 450 ML PO ONE; +CATHETER FLUSH 10 ML SYR IV PRN; +HOLD METFORMIN - RECEIVED CONTRAST 20 ML VIAL IV SCH; +IOHEXOL 350 MG/ML 100 ML (OMNIPAQUE 350) VIAL IV ONE; +NS 100 ML (IVPB) BAG IV ONE; -NS IV 1000 ML (CANCER CTR) IV SCH; -RITUXIMAB-ABBS 500 MG, RITUXIMAB-ABBS 300 MG in NS (IVPB) CANCER CENTER 186 ML IV SCH; -diphenhydrAMINE 25 MG TAB (BENADRYL) CANCER CENTER PO SCH
--- NOTE | 2021-05-27 10:21 | Diagnostic Imaging Report ---
EXAMINATION: CT neck and chest with contrast. CT abdomen and pelvis with and without intravenous contrast. TECHNIQUE: Multiple contiguous axial images were obtained through the neck, chest, abdomen and pelvis after the uneventful administration of intravenous contrast. Pre-contrast images of the abdomen and pelvis were also obtained. All CT scans use one or more of the following dose optimizing techniques: automated exposure control, MA and/or KvP adjustment based on patient size and exam type or iterative reconstruction. HISTORY: Non-Hodgkin lymphoma COMPARISON: 07/04/2020 FINDINGS: Neck CT: There is left neck lymphadenopathy. Level three lymph node measures up to 18 mm in short axis. Supraclavicular lymphadenopathy is present measuring up to 19 mm in short axis. These nodes are new from prior neck CT dated 03/31/2017. The muscles of the neck are normal. Vessels of the neck demonstrate normal course and caliber. Fascial planes are preserved and the deep spaces of the neck are normal. The visualized airway is widely patent. The base of the skull and the temporal bones are normal. Limited views of the brain including the cerebellum and brainstem are normal. The limited view of the [place] is unremarkable. The visualized portions of the orbits are normal. There are no suspicious osseus lesions in the neck. Chest CT: The lungs are clear without edema or pneumonia. No pleural effusion or pneumothorax. No suspicious nodules. There are mild peripheral reticulations in the lungs. They appear similar to prior exam. There are no mildly enlarged right axillary lymph nodes measuring up to 10 mm in short axis. Left-sided portacatheter is present. There is no mediastinal lymphadenopathy. There is fat stranding along the left aspect mediastinum which may be related to prior radiation or treated lymphoma. It is unchanged from prior exam. Heart size is normal. There are mild coronary artery calcifications. No pericardial effusion. Aorta is normal in caliber. Abdomen and Pelvis CT: There is an unchanged area of hypoattenuation at the falciform ligament favored to reflect focal fat. No suspicious liver lesions are seen. There is no biliary ductal dilation. Gallbladder is normal. Pancreas is normal. Spleen is normal. Adrenal glands are normal. There is an unchanged intermediate attenuation left renal lesion likely reflecting a proteinaceous cyst given its stability. There is no hydronephrosis. Urinary bladder is normal. There has been a prostatectomy. Visualized bowel is normal in caliber without obstruction or inflammation. No free fluid or air. No abdominal or pelvic lymphadenopathy. Infrarenal aorta is mildly dilated measuring up to 3.0 cm. There are no suspicious osseus lesions. IMPRESSION: 1. New left neck and right axillary lymphadenopathy concerning for recurrent lymphoma. 2. Reticulations in the lungs which are persistent from prior exam and favored to represent fibrosis. 3. No lymphadenopathy in the abdomen or pelvis. 4. Infrarenal aortic aneurysm measuring 3.0 cm, unchanged from prior study. Dictated by: Dictated on workstation # [id number]
== END ==
LOC: RAD 09:15
PROVIDERS: ATTEND Internal Medicine Hematology & Oncology
DX: I71.9 Aortic aneurysm of unspecified site, without rupture (principal); J98.4 Other disorders of lung; R59.0 Localized enlarged lymph nodes; Z79.899 Other long term (current) drug therapy
CPT/HCPCS: 70491; 71260; 74178

== ENCOUNTER → 2021-06-02 | Day surgery (SDC) | payer MEDICARE, OTHER ==
[~2021-06-02] VITALS: Ht 175.3 cm; Wt 110.9 kg
[~2021-06-02] MED LIST changes: -BARIUM SUSPENSION 2.1% (VANILLA SILQ) 450 ML PO ONE; -CATHETER FLUSH 10 ML SYR IV PRN; -HOLD METFORMIN - RECEIVED CONTRAST 20 ML VIAL IV SCH; -IOHEXOL 350 MG/ML 100 ML (OMNIPAQUE 350) VIAL IV ONE; +LIDOCAINE 1% INJ 20 ML 20 ML VIAL INJ ONE; -NS 100 ML (IVPB) BAG IV ONE
--- NOTE | 2021-06-02 12:15 | Diagnostic Imaging Report ---
INDICATION: Left cervical lymphadenopathy. Patient presents for ultrasound-guided core biopsy. Patient was brought to the procedure room and placed on the table in the supine position. Ultrasound imaging of the left neck was performed to evaluate appropriate entry site. Left neck was then prepped and draped in the usual sterile fashion. A small amount of 1% lidocaine was utilized for local anesthesia. Multiple core biopsies were made of enlarged lymph nodes in the left neck utilizing 18-gauge Tem[place] needle. Hemostasis was obtained using manual compression. Patient tolerated the procedure well left the department in stable condition. IMPRESSION: Successful ultrasound-guided core biopsy of enlarged left neck lymph nodes. Pathology results are currently pending. Dictated by: Dictated on workstation # [id number]
== END ==
LOC: RAD 08:33
PROVIDERS: ATTEND Otolaryngology Otolaryngology/Facial Plastic Surgery
DX: R59.0 Localized enlarged lymph nodes (principal)
CPT/HCPCS: 76942

== ENCOUNTER 2021-07-16 05:48 | Outpatient (CLI) | payer MEDICARE, OTHER ==
[~2021-07-16] VITALS: Ht 175.3 cm; Wt 109.1 kg
[~2021-07-16 05:48] MED LIST changes: -LIDOCAINE 1% INJ 20 ML 20 ML VIAL INJ ONE
== END 2021-08-01 15:49 | disposition home or self-care (01) ==
LOC: PREOP 05:48
PROVIDERS: ATTEND Otolaryngology Otolaryngology/Facial Plastic Surgery
DX: Z01.818 Encounter for other preprocedural examination (principal)

== ENCOUNTER 2021-08-06 11:11 | Outpatient (RCR) | payer MEDICARE, OTHER ==
[2021-05-23 09:11] LABS: BASOPHILS # (AUTO) 0.1 10^3/uL (0.0-0.1); BASOPHILS % (AUTO) 1 % (0-10); EOSINOPHILS # (AUTO) 0.1 10^3/uL (0.0-0.3); EOSINOPHILS % (AUTO) 1 % (0-10); HEMATOCRIT 41 % (40-54); LYMPHOCYTES # (AUTO) 1.3 10^3/uL (1.0-4.0); LYMPHOCYTES % (AUTO) 25 % (12-44); MEAN CORPUSCULAR HEMOGLOBIN 30 pg (25-34); MEAN CORPUSCULAR HGB CONC 34 g/dL (32-36); MEAN CORPUSCULAR VOLUME 89 fL (80-99); MEAN PLATELET VOLUME 9.4 fL (9.0-12.2); MONOCYTES # (AUTO) 0.6 10^3/uL (0.0-1.0); MONOCYTES % (AUTO) 12 % (0-12); NEUTROPHILS # (AUTO) 3.2 10^3/uL (1.8-7.8); NEUTROPHILS % (AUTO) 60 % (42-75); PLATELET COUNT 265 10^3/uL (130-400); WHITE BLOOD COUNT 5.3 10^3/uL (4.3-11.0)
[2021-05-23 09:28] LABS: BILIRUBIN,TOTAL 0.6 MG/DL (0.1-1.0); CALCIUM 9.7 MG/DL (8.5-10.1); CREATININE SERUM 1.17 MG/DL (0.60-1.30); TOTAL PROTEIN 7.1 GM/DL (6.4-8.2)
[~2021-08-06 11:11] MED LIST changes: +ACETAMINOPHEN 325 MG TAB (TYLENOL) CANCER CTR PO PRN; +NS IV 1000 ML (CANCER CTR) IV SCH; +RITUXIMAB-ABBS 500 MG, RITUXIMAB-ABBS 300 MG in NS (IVPB) CANCER CENTER 186 ML IV SCH; +diphenhydrAMINE 25 MG TAB (BENADRYL) CANCER CENTER PO SCH
[2021-08-06 12:45] LABS: BASOPHILS % (AUTO) 1 % (0-10); EOSINOPHILS # (AUTO) 0.1 10^3/uL (0.0-0.3); EOSINOPHILS % (AUTO) 1 % (0-10); HEMATOCRIT 38 % (40-54); HEMOGLOBIN 12.7 g/dL (13.3-17.7); LYMPHOCYTES # (AUTO) 1.2 10^3/uL (1.0-4.0); LYMPHOCYTES % (AUTO) 18 % (12-44); MEAN CORPUSCULAR HEMOGLOBIN 30 pg (25-34); MEAN CORPUSCULAR HGB CONC 33 g/dL (32-36); MEAN CORPUSCULAR VOLUME 89 fL (80-99); MEAN PLATELET VOLUME 9.5 fL (9.0-12.2); MONOCYTES % (AUTO) 15 % (0-12); NEUTROPHILS # (AUTO) 4.4 10^3/uL (1.8-7.8); NEUTROPHILS % (AUTO) 65 % (42-75); PLATELET COUNT 328 10^3/uL (130-400); WHITE BLOOD COUNT 6.7 10^3/uL (4.3-11.0)
[2021-08-06 13:13] LABS: ALBUMIN 3.8 GM/DL (3.2-4.5); BILIRUBIN,TOTAL 0.4 MG/DL (0.1-1.0); CALCIUM 9.6 MG/DL (8.5-10.1); CREATININE SERUM 0.89 MG/DL (0.60-1.30); POTASSIUM 3.9 MMOL/L (3.6-5.0); TOTAL PROTEIN 6.7 GM/DL (6.4-8.2)
[2021-08-07] MEDS ORDERED: ACHD5005 PO (09:53)
== END 2021-08-21 | disposition home or self-care (01) ==
LOC: ONC 11:11
PROVIDERS: ATTEND Internal Medicine Hematology & Oncology
DX: Z51.11 Encounter for antineoplastic chemotherapy (principal); Z45.2 Encounter for adjustment and management of vascular access device; C82.90 Follicular lymphoma, unspecified, unspecified site; J90 Pleural effusion, not elsewhere classified; K92.1 Melena; E66.9 Obesity, unspecified; R59.9 Enlarged lymph nodes, unspecified; Z68.38 Body mass index [BMI] 38.0-38.9, adult; Z85.46 Personal history of malignant neoplasm of prostate; Z87.891 Personal history of nicotine dependence; Z79.82 Long term (current) use of aspirin; Z79.899 Other long term (current) drug therapy; Z92.21 Personal history of antineoplastic chemotherapy
CPT/HCPCS: 80053; 83615; 85025; 96413; G0463; 36591; 36593; 99213

== ENCOUNTER 2021-08-07 07:27 | Day surgery (SDC) | payer MEDICARE, OTHER ==
[2021-08-07] VITALS (9 sets, daily range): BP systolic 112–146; BP diastolic 64–83
[~2021-08-07] VITALS: Ht 175.3 cm; Wt 109.1 kg
[~2021-08-07 07:27] MED LIST changes: -ACETAMINOPHEN 325 MG TAB (TYLENOL) CANCER CTR PO PRN; -NS IV 1000 ML (CANCER CTR) IV SCH; -RITUXIMAB-ABBS 500 MG, RITUXIMAB-ABBS 300 MG in NS (IVPB) CANCER CENTER 186 ML IV SCH; -diphenhydrAMINE 25 MG TAB (BENADRYL) CANCER CENTER PO SCH
[2021-08-07] MEDS ORDERED: LACTATED RINGERS 1,000 ML IV PRN (07:45)
[2021-08-07] MEDS ORDERED: LIDOCAINE/EPI 1%-1:200,000 (XYLOCAINE) 30 ML VIAL ONE (08:49)
[2021-08-07] MEDS ORDERED: BACITRACIN OINTMENT 28 GM TUBE ONE (08:49)
--- NOTE | 2021-08-07 08:50 | Progress Note-Pre Operative ---
Pre-Operative Progress Note H&P Reviewed The H&P was reviewed, patient examined and no changes noted. Date Seen by Provider: Aug 07, 2021 Time Seen by Provider: 08:30 Date H&P Reviewed: Aug 07, 2021 Time H&P Reviewed: 08:30 Pre-Operative Diagnosis: Left Cervical Adenopathy AREN JEAN MD Aug 07, 2021 08:50
[2021-08-07] MEDS ORDERED: proPOfol 200 MG/20 ML (DIPRIVAN) VIAL IV ONE (08:53)
[2021-08-07] MEDS ORDERED: fentaNYL INJ 100 MCG/2 ML AMP ONE (08:53)
[2021-08-07] MEDS ORDERED: MIDAZOLAM 2 MG/2 ML (VERSED) VIAL ONE (08:53)
[2021-08-07] MEDS ORDERED: ONDANSETRON 4 MG/2 ML (SDV) Z0FRAN ONE (08:53)
[2021-08-07] MEDS ORDERED: LIDOCAINE PF 2% 5 ML (XYLOCAINE) VIAL ONE (08:53)
[2021-08-07] MEDS ORDERED: SEVOFLURANE (ULTANE) 15 ML INHAL SOLN ONE (09:33)
--- NOTE | 2021-08-07 09:38 | Progress Note-Post Operative ---
Post-Operative Progess Note Surgeon (s)/Vocational Training Director (s) Surgeon AREN JEAN MD Vocational Training Director n/a Pre-Operative Diagnosis Left Cervical Adenopathy Post-Operative Diagnosis same Post-Op Procedure Note Date of Procedure: Aug 07, 2021 Name of Procedure Performed: Excisional Biopsy of Left Cervical Lymph Node Description & Findings Description and Findings: n/a Anesthesia Type lma Estimated Blood Loss minimal Packing none. Specimen(s) collected/removed left cervical lymph node to path fresh to be t reated as a lymphoma AREN JEAN MD Aug 07, 2021 09:38
[2021-08-07] MEDS ORDERED: ACETAMINOPHEN 325 MG TABLET PO PRN (09:45)
[2021-08-07] MEDS ORDERED: HYDROcodone/APAP 5 MG/325 MG (LORTAB) TAB PO PRN (09:45)
[2021-08-07] MEDS ORDERED: ACHD5005 PO (09:53)
[2021-08-07] MEDS ORDERED: ONDANSETRON 4 MG/2 ML (SDV) Z0FRAN IVP PRN (10:00)
[2021-08-07] MEDS ORDERED: morphine INJ 10 MG/ML 1ML (SYR OR VIAL) IVP ONE (10:00)
--- NOTE | 2021-08-07 13:37 | Anesthesia-General Post-Op ---
General Patient Condition Mental Status/LOC: Same as Preop Cardiovascular: Satisfactory Nausea/Vomiting: Absent Respiratory: Satisfactory Pain: Controlled Complications: Absent Post Op Complications Complications None Follow Up Care/Instructions Patient Instructions None needed. Anesthesia/Patient Condition Patient Condition Patient was doing well after the procedure without complaints, stable vital signs, no apparent adverse anesthesia problems. CATIA YORK DO Aug 07, 2021 13:37
== END 2021-08-07 11:25 | disposition home or self-care (01) ==
LOC: SDC 07:27
PROVIDERS: ATTEND Otolaryngology Otolaryngology/Facial Plastic Surgery
DX: C85.11 Unspecified B-cell lymphoma, lymph nodes of head, face, and neck (principal); E66.9 Obesity, unspecified; Z68.35 Body mass index [BMI] 35.0-35.9, adult; Z79.899 Other long term (current) drug therapy; Z79.82 Long term (current) use of aspirin
CPT/HCPCS: 87081; 88184; 88185; 88307; 88342; 88360; 93005

== ENCOUNTER 2021-08-26 14:46 | Outpatient (RCR) | payer MEDICARE, OTHER ==
[~2021-08-26 14:46] MED LIST changes: +ACHD5005 PO
[2021-08-26 15:02] LABS: BASOPHILS # (AUTO) 0.1 10^3/uL (0.0-0.1); BASOPHILS % (AUTO) 1 % (0-10); EOSINOPHILS # (AUTO) 0.1 10^3/uL (0.0-0.3); EOSINOPHILS % (AUTO) 2 % (0-10); HEMATOCRIT 43 % (40-54); HEMOGLOBIN 14.1 g/dL (13.3-17.7); LYMPHOCYTES % (AUTO) 29 % (12-44); MEAN CORPUSCULAR HEMOGLOBIN 29 pg (25-34); MEAN CORPUSCULAR HGB CONC 33 g/dL (32-36); MEAN CORPUSCULAR VOLUME 90 fL (80-99); MEAN PLATELET VOLUME 9.4 fL (9.0-12.2); MONOCYTES % (AUTO) 15 % (0-12); NEUTROPHILS # (AUTO) 3.6 10^3/uL (1.8-7.8); NEUTROPHILS % (AUTO) 53 % (42-75); PLATELET COUNT 290 10^3/uL (130-400); WHITE BLOOD COUNT 6.8 10^3/uL (4.3-11.0)
[2021-08-26 15:24] LABS: ALBUMIN 4.4 GM/DL (3.2-4.5); BILIRUBIN,TOTAL 0.5 MG/DL (0.1-1.0); CALCIUM 10.2 MG/DL (8.5-10.1); CREATININE SERUM 1.01 MG/DL (0.60-1.30); POTASSIUM 4.1 MMOL/L (3.6-5.0); TOTAL PROTEIN 7.8 GM/DL (6.4-8.2)
== END 2021-09-22 | disposition home or self-care (01) ==
LOC: ONC 14:46
PROVIDERS: ATTEND Internal Medicine Hematology & Oncology
DX: C82.13 Follicular lymphoma grade II, intra-abdominal lymph nodes (principal); J90 Pleural effusion, not elsewhere classified; E66.9 Obesity, unspecified; Z68.38 Body mass index [BMI] 38.0-38.9, adult; Z79.899 Other long term (current) drug therapy; Z85.46 Personal history of malignant neoplasm of prostate; Z87.891 Personal history of nicotine dependence; Z79.82 Long term (current) use of aspirin
CPT/HCPCS: 80053; 83615; 85025; G0463; 99213

== ENCOUNTER → 2021-09-02 | Outpatient (CLI) | payer MEDICARE, OTHER ==
--- NOTE | 2021-09-02 17:07 | Diagnostic Imaging Report ---
INDICATION: Follicular lymphoma. Serum blood glucose level at the time of injection was 105 mg/dL. Patient was administered 14.8 mCi F-18 FDG intravenously in the left antecubital location and PET imaging was performed from the top of the skull to mid thighs. Noncontrast CT was also performed for attenuation correction and anatomic correlation. CORRELATION is made with prior PET/CT study from 10/06/2016. There is symmetric activity throughout the brain. No hypermetabolic cervical lymphadenopathy is detected on today's study. Previously noted bulky hypermetabolic mediastinal lymphadenopathy is no longer visualized. No hilar hypermetabolic lymphadenopathy is detected. No pulmonary parenchymal hypermetabolism or pleural nodularity is seen. There is no pleural or pericardial fluid detected. Abdomen and pelvis demonstrates physiologic activity throughout the gastrointestinal and genitourinary tracts. The spleen is no longer enlarged. No suspicious foci of hypermetabolism in the abdomen and pelvis are identified. IMPRESSION: Essentially unremarkable PET/CT study. No hypermetabolic lymphadenopathy is identified on today's exam. Dictated by: Dictated on workstation # [id number]
== END ==
LOC: CARD 13:30
PROVIDERS: ATTEND Internal Medicine Hematology & Oncology
DX: C82.13 Follicular lymphoma grade II, intra-abdominal lymph nodes (principal); Z79.899 Other long term (current) drug therapy
CPT/HCPCS: 78815; 93306; A9552

== ENCOUNTER → 2023-01-01 | Outpatient (CLI) | payer MEDICARE, OTHER | LOC: CARD 08:30 | PROVIDERS: ATTEND Internal Medicine Hematology & Oncology | DX: I51.7 Cardiomegaly (principal); I35.1 Nonrheumatic aortic (valve) insufficiency; C82.13 Follicular lymphoma grade II, intra-abdominal lymph nodes; Z03.89 Encounter for observation for other suspected diseases and conditions ruled out | CPT/HCPCS: 93306 ==

== ENCOUNTER 2023-03-19 07:02 | Day surgery (SDC) | payer MEDICARE ==
[2023-03-19] VITALS (9 sets, daily range): BP systolic 94–125; BP diastolic 48–88
[~2023-03-19] VITALS: Ht 172.7 cm; Wt 93.6 kg
[~2023-03-19 07:02] MED LIST changes: +ASPI-999 PO; +NINT150C PO; +ONDA8TAB13 SL; +PANT40TA52 PO
[2023-03-19] MEDS ORDERED: LIDOCAINE/EPI 1%-1:100,000 (XYLOCAINE) 20ML ONE (07:23)
[2023-03-19] MEDS ORDERED: ceFAZolin INJECTION 2,000 MG in NS (IVPB) 50 ML 50 ML IV ONE (07:30)
[2023-03-19] MEDS ORDERED: LACTATED RINGERS 1,000 ML IV PRN (07:30)
--- NOTE | 2023-03-19 07:49 | Progress Note-Pre Operative ---
Pre-Operative Progress Note Date H&P Reviewed: Mar 19, 2023 Time H&P Reviewed: 07:35 History & Physical: H&P Reviewed, Patient Examed, No changes noted Pre-Operative Diagnosis: left inguinal lymphadenapathy SUNG MATHEWS DO Mar 19, 2023 07:49
[2023-03-19] MEDS ORDERED: fentaNYL INJ 100 MCG/2 ML AMP ONE (07:50)
[2023-03-19] MEDS ORDERED: proPOfol 200 MG/20 ML (DIPRIVAN) VIAL IV ONE (08:20)
[2023-03-19] MEDS ORDERED: LIDOCAINE PF 2% 5 ML (XYLOCAINE) VIAL ONE (08:20)
[2023-03-19] MEDS ORDERED: ONDANSETRON 4 MG/2 ML (SDV) Z0FRAN ONE (08:20)
[2023-03-19] MEDS ORDERED: dexAMETHasone INJ 10 MG/ML 1 ML VIAL ONE (08:20)
[2023-03-19] MEDS ORDERED: LIDOCAINE/EPI 1%-1:100,000 (XYLOCAINE) 20ML INJ ONE (08:24)
[2023-03-19] MEDS ORDERED: SEVOFLURANE (ULTANE) 15 ML INHAL SOLN ONE (08:29)
--- NOTE | 2023-03-19 08:32 | Progress Note-Post Operative ---
Post-Operative Progess Note Surgeon (s)/Animal Shelter Worker (s) Surgeon SUNG MATHEWS DO Animal Shelter Worker: na Pre-Operative Diagnosis left inguinal lymphadenapathy Post-Operative Diagnosis same Procedure & Operative Findings Date of Procedure 03/19/23 Procedure Performed/Findings excisional biopsy left inguinal node 5x2.5x1.5cm Anesthesia Type general Estimated Blood Loss Estimated blood loss (mL): minimal Specimens/Packing Specimens Removed left inguinal node SUNG MATHEWS DO Mar 19, 2023 08:32
--- NOTE | 2023-03-19 08:33 | Discharge Inst-Simple/Standard ---
Discharge Inst-Standard Discharge Medications New, Converted or Re-Newed RX: Transmitted to Pharmacy Patient Instructions/Follow Up Plan of Care/Instructions/FU: 2 weeks [place] Activity as Tolerated: No Discharge Diet: Regular Diet Other Inst to Patient Follow up Appt: Make appointment for 2 week. Instructions: No lifting greater than 10 pounds. No strenuous activity. May shower in 24 hours, no tub bath or soaking. Use incentive spirometer at home as directed. No Smoking Skin/Wound Care: You have special glue over your incision that will fall off on it's own. Symptoms to Report: Appetite Changes, Extremity Discoloration, Numbness/Tingling, Swelling Increased, Bleeding Excessive, Eyesight Changes, Pain Increased, Urine Color Change, Constipation(Persistent), Fever over 101 degree F, Pain/Pressure in chest, Urinating Difficulty, Cough Up/Vomit Blood, Heart Beat Irreg/Pounding, Pain/Pressure in jaw, Vaginal Bleeding Increase, Cramps in feet or legs, Lightheadedness, Pain/Pressure in shoulder, Diarrhea(Persistent), Memory Changes Suddenly, Questions/Concerns, Weight gain consecutive days, Dizziness/Fainting, Nausea/Vomiting, Shortness of Breath, Weight gain over 2 pounds If questions or concerns contact your physician Or seek help at emergency department. SUNG MATHEWS DO Mar 19, 2023 08:33
[2023-03-19] MEDS ORDERED: ACHD5005 PO (08:34)
[2023-03-19] MEDS ORDERED: morphine INJ 10 MG/ML 1ML (SYR OR VIAL) IVP ONE (08:45)
[2023-03-19] MEDS ORDERED: ONDANSETRON 4 MG/2 ML (SDV) Z0FRAN IVP PRN (08:45)
--- NOTE | 2023-03-19 08:46 | OPERATIVE REPORT ---
DATE OF SERVICE: 03/19/2023 PREOPERATIVE DIAGNOSIS: Left inguinal lymphadenopathy. POSTOPERATIVE DIAGNOSIS: Left inguinal lymphadenopathy. PROCEDURE: Excisional biopsy, left inguinal node 5 x 2.5 x 1.5 cm. SURGEON: Sung Ayon DO ANESTHESIA: General. ESTIMATED BLOOD LOSS: Minimal. COMPLICATIONS: None. INDICATIONS: The patient is a 77-year-old male with left inguinal lymphadenopathy. This is requested to be biopsied. He understands risks and benefits of procedure and wishes to proceed. Consent was signed in chart. DESCRIPTION OF PROCEDURE: The patient was taken brought to the operating suite, prepped and draped in sterile fashion. Timeout was performed. Local anesthetic was infiltrated. An #15 blade scalpel was used to make a small skin incision. Cautery used to dissect down through the subcutaneous tissues when the node was encountered. This was able to be both bluntly and cautery dissected around until removed. Overall, measurement was 5 x 2.5 x 1.5 cm. This was sent for fresh specimen. The wound was then irrigated with copious amounts of irrigation. Kathleen's fascia was then closed using 3-0 Vicryl. Skin was then closed using 4-0 Monocryl in running subcuticular fashion. Area was washed and dried and Skin Affix was placed over the incision. The patient tolerated the procedure well without any complications, taken to recovery room in stable condition. Job ID: [id number] DocumentID: [id number] Dictated Date: 03/19/2023 08:37:47 Photographic Intelligence Officer Date: 03/19/2023 08:45:00 Dictated By: SUNG AYON DO
--- NOTE | 2023-03-19 09:58 | Anesthesia-General Post-Op ---
General Patient Condition Mental Status/LOC: Same as Preop Cardiovascular: Satisfactory Nausea/Vomiting: Absent Respiratory: Satisfactory Pain: Controlled Complications: Absent Post Op Complications Complications None Follow Up Care/Instructions Patient Instructions None needed. Anesthesia/Patient Condition Patient Condition Patient is doing well, no complaints, stable vital signs, no apparent adverse anesthesia problems. No complications reported per nursing. KIRBY ROMAN CRNA Mar 19, 2023 09:58
== END 2023-03-19 10:10 ==
LOC: SDC 07:02
PROVIDERS: ATTEND Surgery
DX: C85.15 Unspecified B-cell lymphoma, lymph nodes of inguinal region and lower limb (principal); E66.9 Obesity, unspecified; Z68.31 Body mass index [BMI] 31.0-31.9, adult; Z87.891 Personal history of nicotine dependence
CPT/HCPCS: 87081